=== PATIENT | female | born 1970 | race Hispanic/Latino ===

== ENCOUNTER 2017-01-24 09:52 | Outpatient (CLI) | payer BC ==
--- NOTE | 2017-01-24 11:17 | Mammography Report ---
BILATERAL MAMMOGRAM: FINDINGS: The breast tissue is heterogeneously dense, which could obscure detection of small masses (approximately 50%-75% glandular). No mass, distortion, suspicious calcification, or skin change is seen. No interval change compared to exams dating back to 2014. CAD was utilized. IMPRESSION: Negative mammogram. There is no mammographic evidence of malignancy. RECOMMENDATION: Follow-up per ACS guidelines. BI-RADS CATEGORY: 1 = Negative ACR BI-RADS MAMMOGRAPHIC CODES: 0 = Needs additional imaging evaluation; 1 = Negative; 2 = Benign; 3 = Probably benign; 4 = Suspicious; 5 = Malignant; 6 = Known biopsy-proven malignancy COMMENT: 1. Dense breast tissue, i.e., adenosis, fibrocystic changes, etc., may obscure an underlying neoplasm. 2. Approximately 10% of cancers are not detected with mammography. 3. A negative mammography report should not delay biopsy if a clinically suspicious mass is present. COMMENT: Patient follow-up letters are generated in [employer].
== END 2017-01-24 09:53 | disposition home or self-care (01) ==
LOC: SPVWC 09:52
PROVIDERS: ATTEND Obstetrics & Gynecology
DX: Z12.31 Encounter for screening mammogram for malignant neoplasm of breast (principal)
CPT/HCPCS: 77067; G0202

== ENCOUNTER 2017-03-24 06:02 | Day surgery (SDC) | payer BC ==
[2017-03-24] MEDS ORDERED: WATER FOR IRRIG STERILE IR ONE (07:25)
--- NOTE | 2017-03-24 07:31 | Discharge Summary ---
Providers - Providers Date of discharge: 03/24/17 Attending physician: EDUARDO TINEO Primary care physician: SOFIE TAYLOR Hospitalization Condition: Good Procedures: egd Disposition: - TO HOME OR SELFCARE Core Measure Documentation - Palliative Care Palliative Care/ Comfort Measures: Not Applicable - Core Measures Any of the following diagnoses?: none Exam - Physical Exam Narrative exam: unchanged from pre-op Plan Activity: no restrictions Diet: regular Follow up with: SOFIE TAYLOR MD, PHD [Primary Care Provider] - 7 Days
--- NOTE | 2017-03-24 07:35 | Operative Report ---
Operative Report Operative Report: OPERATIVE REPORT - EGD DATE 03/24/17 SURGERY: Upper endoscopy. SURGEON: Vaishali Ramos M.D. DIRECTOR UTILIZATION MANAGEMENT: n/a PRE OP DX:dyspepsia POST OP DX: hiatal hernia TYPE OF ANESTHESIA: MAC. ESTIMATED BLOOD LOSS: None. COMPLICATIONS: None. SPECIMENS REMOVED: None. FINDINGS: 1. Small hiatal hernia. 2. Otherwise, normal esophagus, stomach and first portion of duodenum. INDICATIONS:INDICATION FOR PROCEDURE: Patient is a 46-year-old female with a long history of morbid obesity. She is planned to have a weight loss procedure and is here for preoperative planning EGD. PROCEDURE DETAILS: After consent was reviewed, patient was taken back to the operating room where patient was placed in the left lateral decubitus position and a bite block was placed in the mouth. After a time-out was called, MAC anesthesia was initiated. I then passed the endoscope into her oropharynx, into her esophagus, visualized the entire esophagus, which was all within normal limits. I then visualized the stomach and the first portion of the duodenum and there were no abnormalities I could clearly visualize. I then retroflexed the scope in the stomach and visualized the hiatus and I could see a small hiatal hernia. I then desufflated the stomach and removed the endoscope. Patient tolerated procedure well and was transferred to recovery room in good and stable condition.
[2017-03-24] MEDS ORDERED: XYLOCAINE 1% 20 mL ONE (07:37)
[2017-03-24] MEDS ORDERED: DIPRIVAN 10 MG/ML IV ONE ×2 (07:38)
[2017-03-24] MEDS: NACL 0.9% 1000 ML 1,000 ML IV SCH ×2 (07:43→08:09)
--- NOTE | 2017-03-24 08:03 | Anesthesia Consultation ---
Anesthesia Consult and Med Hx Date of service: 03/24/17 - Airway Anesthetic Teeth Evaluation: Good ROM Head & Neck: Adequate Mental/Hyoid Distance: Adequate Mallampati Class: Class III Intubation Access Assessment: Possibly Difficult - Pulmonary Exam CTA: Yes - Cardiac Exam Cardiac Exam: RRR - Pre-Operative Health Status ASA Pre-Surgery Classification: ASA3 Proposed Anesthetic Plan: MAC - Pre-Anesthesia Comment Pre-Anesthesia Comments: PONV - Pulmonary Hx Smoking: Yes (Quit 2013) - Cardiovascular System Hx Hypertension: Yes (10 + YRS) Hx Cardia Arrhythmia: Yes (SVT, Non sustained VTach) Hx Internal Defibrillator: Yes (PLACED 08/2014 , REMOVED 11/2015 " KEPT FIRING") - Other Systems Hx Obesity: Yes (BMI 41) - Additional Comments Anesthesia Medical History Comments: sciatica
--- NOTE | 2017-03-24 08:05 | Anesthesia Day of Surgery ---
Anesthesia Day of Surgery - Day of Surgery Patient Examined: Yes Patient H&P Reviewed: Yes Patient is NPO: Yes Beta Blockers: Yes
[2017-03-24 08:12] VITALS: BP 123/68
--- NOTE | 2017-03-24 08:25 | Post Anesthesia Evaluation ---
- Post Anesthesia Evaluation Patient Participated: Yes Airway Patent: Yes Stable Respiratory Function: Yes Temp > 96.8F: Yes Pain Manageable: Yes Adequeate Hydration: Yes Anesthesia Complications: No Block Receding Appropriately: Not Applicable
== END 2017-03-24 06:03 | disposition home or self-care (01) ==
LOC: GIO 06:02
PROVIDERS: ATTEND Surgery
DX: K44.9 Diaphragmatic hernia without obstruction or gangrene (principal); I10 Essential (primary) hypertension; E78.00 Pure hypercholesterolemia, unspecified; E66.01 Morbid (severe) obesity due to excess calories; Z68.41 Body mass index [BMI] 40.0-44.9, adult; Z87.891 Personal history of nicotine dependence; Z86.79 Personal history of other diseases of the circulatory system; Z90.710 Acquired absence of both cervix and uterus; Z98.890 Other specified postprocedural states; Z88.1 Allergy status to other antibiotic agents; Z79.899 Other long term (current) drug therapy; Z82.49 Family history of ischemic heart disease and other diseases of the circulatory system; Z83.3 Family history of diabetes mellitus
CPT/HCPCS: 43235; J2704; J7030

== ENCOUNTER 2017-07-03 12:29 | Outpatient (CLI) | payer BC ==
--- NOTE | 2017-07-08 07:37 | Vascular Lab Report ---
CAROTID DUPLEX STUDY: RIGHT PSVEDV CCA PROX:7925 CCA DIST:6927 ICA PROX:6226 ICA MID:9141 ICA DIST:8132 ECA: 94 VERT: 55 23 LEFT PSVEDV CCA PROX:[id number] CCA DIST:05305 ICA PROX:7422 ICA MID:8837 ICA DIST:9545 ECA: 86 VERT: 47 17 REASON FOR EXAM: Carotid artery stenosis/syncope. COMMENTS ON THE RIGHT: Doppler frequency analysis is consistent with 16 to 49 percent diameter reduction of the internal carotid artery. Minimal amount of plaque is seen. The common carotid artery is patent. The external carotid artery is patent. The vertebral artery has antegrade flow. COMMENTS ON THE LEFT: Doppler frequency analysis is consistent with 16 to 49 percent diameter reduction of the internal carotid artery. Minimal amount of plaque is seen. The common carotid artery is patent. The external carotid artery is patent. The vertebral artery has antegrade flow. IMPRESSION: Less than 50% diameter reduction in the internal carotid arteries bilaterally. Consider repeat carotid artery duplex in 12 months.
== END 2017-07-03 12:30 | disposition home or self-care (01) ==
LOC: SPVIMAG 12:29
DX: I65.23 Occlusion and stenosis of bilateral carotid arteries (principal); R55 Syncope and collapse; R42 Dizziness and giddiness
CPT/HCPCS: 93880

== ENCOUNTER 2017-09-30 10:19 | Outpatient (CLI) | payer BC ==
--- NOTE | 2017-09-30 11:36 | XRay Report ---
Right foot 3 views. History: Pain after trauma. Findings: There is no evidence of acute fracture or other acute findings. 2 orthopedic pins are seen in the distal aspect of the first metatarsal. Bony mineralization is normal. Small spurs are seen arising from the posterior and dorsal aspect of the os calcis. Impression: No acute findings.
== END 2017-09-30 10:20 | disposition home or self-care (01) ==
LOC: SPVIMAG 10:19
DX: M25.871 Other specified joint disorders, right ankle and foot (principal)

== ENCOUNTER 2017-10-26 13:45 | Inpatient (IN) | payer BC ==
[2017-10-26 15:17] LABS: Basophils % (Auto) 0.5 % (0.0-1.8); Eosinophils % (Auto) 0.7 % (0.0-4.3); Hematocrit 38.7 % (30.3-42.9); Hemoglobin 13.1 gm/dl (10.1-14.3); Lymphocytes # (Auto) 0.6 K/mm3 (1.2-5.4); Lymphocytes % (Auto) 10.2 % (13.4-35.0); Mean Corpuscular HGB Conc 34 % (30-34); Mean Corpuscular Hemoglobin 29 pg (28-32); Mean Corpuscular Volume 84 fl (79-97); Monocytes # (Auto) 0.3 K/mm3 (0.0-0.8); Monocytes % (Auto) 5.7 % (0.0-7.3); Platelet Count 171 K/mm3 (140-440); Red Blood Count 4.59 M/mm3 (3.65-5.03); Red Cell Distribution Width 13.2 % (13.2-15.2)
[2017-10-26 15:46] LABS: Alanine Aminotransferase 14 units/L (7-56); Albumin 4.1 g/dL (3.9-5); BUN/Creatinine Ratio 17; Blood Urea Nitrogen 12 mg/dL (7-17); Calcium 8.9 mg/dL (8.4-10.2); Hemolysis Index 0
[2017-10-27] MEDS ORDERED: NORCO 5/325 PO ONE (02:06)
--- NOTE | 2017-10-27 02:12 | Emergency Department Report ---
HPI - General Chief Complaint: Arrhythmia/Palpitations Time Seen by Provider: 10/27/17 01:56 - HPI HPI: Room 7 The patient is a 47-year-old female presented with a chief complaint of "taking sick." The patient says she has several family members were diagnosed with the flu. Patient states yesterday evening she began developing body aches, nonproductive cough, chills and fever 100.4F. Patient also admits to rhinorrhea but denies nausea/vomiting. Patient states her biggest complaint currently are body aches and feeling tired Location: [See above] Duration: Constant since yesterday Quality: Aches Severity: Moderate Modifying factors: [see above] Context: [see above] Mode of transportation: [not driving] ED Past Medical Hx - Past Medical History Hx Hypertension: Yes Hx GERD: Yes Hx Arthritis: Yes Hx Headaches / Migraines: Yes Hx Kidney Stones: Yes Additional medical history: CAD (3 BLOCKAGES, NO STENTS). SVT - Surgical History Hx Pacemaker: Yes (Defribrillator removed) Hx Internal Defibrillator: (had defibrillator removed) Hx Cholecystectomy: Yes Additional Surgical History: hysterectomy 2013 - Family History Family history: no significant - Social History Smoking Status: Never Smoker Substance Use Type: None (denies illicit drug use) - Medications Home Medications: Home Medications Medication Instructions Recorded Confirmed Last Taken Type Aspirin [Aspirin TAB] 325 mg PO QDAY 06/14/16 10/09/17 10/09/17 History AtorvaSTATin [Lipitor] 80 mg PO QHS 06/14/16 10/09/17 03/23/17 History ALPRAZolam [Xanax TAB] 0.25 mg PO TID PRN 03/21/17 10/09/17 03/25/17 History Metoprolol [Lopressor TAB] 25 mg PO QHS 10/09/17 10/09/17 10/08/17 21:00 History 25 Metoprolol [Lopressor TAB] 50 mg PO QAM 10/09/17 10/09/17 10/09/17 History ED Review of Systems ROS: Stated complaint: IRREGULAR HEARTBEAT Other details as noted in HPI Constitutional: chills, fever ENT: other (rhinorrhea) Respiratory: cough Gastrointestinal: denies: nausea, vomiting Musculoskeletal: myalgia Physical Exam - Physical Exam Vital Signs: Vital Signs 10/26/17 10/26/1718 14:13 22:01 01:29 Temperature 99.4 F 98 F 98.8 F Pulse Rate 122 H 78 90 Respiratory 18 18 18 Rate Blood Pressure 164/103 137/82 Blood Pressure 152/93 [Left] O2 Sat by Pulse 98 97 98 Oximetry Physical Exam: GENERAL: The patient is well-developed well-nourished female lying on stretcher not appearing to be in acute distress. [] HEENT: Normocephalic. Atraumatic. Extraocular motions are intact. Patient has moist mucous membranes. NECK: Supple. Trachea midline CHEST/LUNGS: Clear to auscultation. There is no respiratory distress noted. HEART/CARDIOVASCULAR: Regular. There is no tachycardia. There is no gallop rub or murmur. ABDOMEN: Abdomen is soft, nontender. Patient has normal bowel sounds. There is no abdominal distention. SKIN: There is no rash. There is no edema. There is no diaphoresis. NEURO: The patient is awake, alert, and oriented. The patient is cooperative. The patient has normal speech MUSCULOSKELETAL: There is no evidence of acute injury. ED Course Vital Signs 10/26/17 10/26/17 10/27/17 14:13 22:01 01:29 Temperature 99.4 F 98 F 98.8 F Pulse Rate 122 H 78 90 Respiratory 18 18 18 Rate Blood Pressure 164/103 137/82 Blood Pressure 152/93 [Left] O2 Sat by Pulse 98 97 98 Oximetry - Reevaluation(s) Reevaluation #1: 10/27/17 04:26 Patient started complaining of epigastric pain radiating to her chest after receiving [place]. Pain was unrelieved with GI cocktail. Repeat EKG and cardiac enzymes ordered Reevaluation #2: 10/27/17 05:00 Patient continues to have chest pain states she became diaphoretic with it. Repeat EKG does not show any acute changes. Patient states she had a cardiac catheterization approximately 3 years ago that showed a 50% occlusion in one of her vessels. Given the patient's medical history and new onset chest pain I will admit the patient to the hospital for further monitoring ED Medical Decision Making - Lab Data Result diagrams: 10/26/17 15:02 10/26/17 15:02 - EKG Data -: EKG Interpreted by Me EKG shows normal: sinus rhythm Rate: tachycardia (119 bpm) - EKG Data When compared to previous EKG there are: previous EKG unavailable Interpretation: unchanged when compared t (10/09/2017), other (single PVC) 10/27/17 05:02 EKG #2 reveals normal sinus rhythm at 81 bpm. No significant changes when compared to previous EKG - Radiology Data Radiology results: report reviewed (chest x-ray), image reviewed (chest x-ray) interpreted by me: Chest x-ray-no definite focal infiltrates, no pneumothorax FINAL REPORT PROCEDURE: XR CHEST ROUTINE 2V TECHNIQUE: PA and lateral chest radiographs were obtained. CPT 76388 HISTORY: cough, fever COMPARISON: 10/09/2017 FINDINGS: Heart: Normal. Mediastinum/Vessels: Normal. Lungs/Pleural space: Slight infiltrate left lower lung. Bony thorax: No acute osseous abnormality. Other: IMPRESSION: Slight infiltrate left lower lung. Transcribed By: [facility] Dictated By: JAVIER BARRIOS MD Electronically Authenticated By: JAVIER BARRIOS MD Signed Date/Time: 10/26/172252 DD/ 52 TD/TT: 10/26/172252 - Differential Diagnosis influenza, bronchitis, pneumonia, UTI, ACS Critical care attestation.: If time is entered above; I have spent that time in minutes in the direct care of this critically ill patient, excluding procedure time. ED Disposition Clinical Impression: Chest pain, Cough Disposition: -09 OP ADMIT IP TO THIS HOSP Is pt being admited?: Yes Does the pt Need Aspirin: Yes Condition: Fair Instructions: Chest Pain (ED) Referrals: PRIMARY CARE, [Primary Care Provider] - 3-5 Days Time of Disposition: 05:02 (hospitalist paged (Dr Kim))
--- NOTE | 2017-10-27 02:57 | XRay Report ---
FINAL REPORT PROCEDURE: XR CHEST ROUTINE 2V TECHNIQUE: PA and lateral chest radiographs were obtained. CPT 79121 HISTORY: cough, fever COMPARISON: 10/09/2017 FINDINGS: Heart: Normal. Mediastinum/Vessels: Normal. Lungs/Pleural space: Slight infiltrate left lower lung. Bony thorax: No acute osseous abnormality. Other: IMPRESSION: Slight infiltrate left lower lung.
[2017-10-27] MEDS ORDERED: ALUM-MAG HYDROX-SIMETH 200-200-20MG/5ML PO ONE (03:33)
[2017-10-27] MEDS ORDERED: LIDOCAINE VISCOUS 2% PO ONE (03:33)
[2017-10-27] MEDS ORDERED: ZOFRAN IV ONE (04:26)
[2017-10-27] MEDS ORDERED: MORPHINE IV ONE (04:26)
[2017-10-27] MEDS ORDERED: NITRO-BID 2% TP ONE (05:00)
[2017-10-27] MEDS ORDERED: ASPIRIN PO ONE (05:03)
[2017-10-27 05:40] LABS: Creatine Kinase MB 1.1 ng/mL (0.0-4.0)
[2017-10-27] MEDS ORDERED: LEVAQUIN PO ONE (05:43)
[2017-10-27] MEDS ORDERED: AMBIEN PO PRN (05:47)
[2017-10-27] MEDS ORDERED: NITROSTAT SL PRN (05:47)
[2017-10-27] MEDS ORDERED: ZOFRAN IV PRN (05:47)
[2017-10-27] MEDS ORDERED: MILK OF MAGNESIA PO PRN (05:47)
[2017-10-27] MEDS ORDERED: PROVENTIL IH PRN (05:47)
[2017-10-27] MEDS ORDERED: SODIUM CHLORIDE FLUSH SYRINGE 10 ML IV PRN (05:47)
[2017-10-27] MEDS ORDERED: DULCOLAX PR PRN (05:47)
[2017-10-27] MEDS ORDERED: TYLENOL PO PRN (05:47)
[2017-10-27] MEDS ORDERED: APRESOLINE IV PRN (05:47)
[2017-10-27] MEDS ORDERED: NACL 0.45% 1000 ML 1,000 ML IV SCH (06:00)
--- NOTE | 2017-10-27 06:04 | History and Physical Report ---
History of Present Illness Date of examination: 10/27/17 Chief complaint: flu like sx & chest pain History of present illness: The patient is a 47-year-old female presented with a chief complaint of "taking sick." The patient says she has several family members were diagnosed with the flu. Patient states yesterday evening she began developing body aches, nonproductive cough, chills and fever 100.4F. Patient also admits to rhinorrhea but denies nausea/vomiting. Patient states her biggest complaint currently are body aches and feeling tired - Past Medical History Hx Hypertension: Yes Hx GERD: Yes Hx Arthritis: Yes Hx Headaches / Migraines: Yes Hx Kidney Stones: Yes Additional medical history: CAD (3 BLOCKAGES, NO STENTS). SVT - Surgical History Hx Pacemaker: Yes (Defribrillator removed) Hx Internal Defibrillator: (had defibrillator removed) Hx Cholecystectomy: Yes Additional Surgical History: hysterectomy 2013 - Family History Family history: no significant - Social History Smoking Status: Never Smoker Substance Use Type: None (denies illicit drug use) Medications and Allergies Allergies Allergy/AdvReac Type Severity Reaction Status Date / Time doxycycline AdvReac ulcers Verified 03/25/17 17:22 esophagus tetracycline [Tetracycline] AdvReac ulcers Verified 03/25/17 17:22 esophagus Home Medications Medication Instructions Recorded Confirmed Last Taken Type Aspirin [Aspirin TAB] 325 mg PO QDAY 06/14/16 10/09/17 10/09/17 History AtorvaSTATin [Lipitor] 80 mg PO QHS 06/14/16 10/09/17 03/23/17 History ALPRAZolam [Xanax TAB] 0.25 mg PO TID PRN 03/21/17 10/09/17 03/25/17 History Metoprolol [Lopressor TAB] 25 mg PO QHS 10/09/17 10/09/17 10/08/17 21:00 History 25 Metoprolol [Lopressor TAB] 50 mg PO QAM 10/09/17 10/09/17 10/09/17 History Active Meds: Active Medications Oseltamivir Phosphate (Tamiflu) 75 mg PO BID ADRIANNA Stop: 10/31/17 22:01 Review of Systems All systems: negative (as in HPI) Exam - Physical Exam Narrative exam: General: the patient is awake alert oriented to time place and person. no evidence of acute distress HEENT: Head is atraumatic normocephalic,. Pupils equal round reactive to light and accommodation, extraocular movements intact. Oral mucosa moist. Oropharynx clear. No pharyngeal erythema or tonsillar exudate. Neck: Supple no JVD no thyromegaly or lymphadenopathy. Heart: Regular rate and rhythm no murmurs or gallops. S1 and S2 normal. PMI not displaced. Lungs: Clear to auscultation bilaterally. No rales rhonchi wheezing. Nonlabored breathing. Normal chest wall expansion. Abdomen: Soft, nondistended, and nontender. Normoactive bowel sounds. No hepatosplenomegaly. No abdominal masses or bruit appreciated. Extremities: No cyanosis/clubbing/ edema. Musculoskeletal: Normal range of movement all joints. No obvious deformity or tenderness to palpation. Normal muscle tone. Back: Normal alignment. No step-off. No midline or paraspinal tenderness. No CVA tenderness. Neurological: Grossly intact and nonfocal. No cerebellar signs. Cranial nerves II-12 grossly intact. Strength 5 out of 5 all 4 extremities. Sensations grossly intact. Skin: Warm and dry no rashes or bruises. Psychiatric: Normal mood. Appropriate affect and good insight and judgment. Vascular system: No lymphadenopathy. Distal pulses 2+ bilaterally. - Constitutional Vitals: Temp Pulse Resp BP Pulse Ox 98.8 F 102 H 21 168/89 95 10/27/17 01:29 10/27/17 05:44 10/27/17 04:15 10/27/17 05:44 10/27/17 04:15 Results - Labs CBC & Chem 7: 10/26/17 15:02 10/26/17 15:02 Labs: Laboratory Last Values WBC 6.0 K/mm3 (4.5-11.0) 10/26/17 15:02 RBC 4.59 M/mm3 (3.65-5.03) 10/26/17 15:02 Hgb 13.1 gm/dl (10.1-14.3) 10/26/17 15:02 Hct 38.7 % (30.3-42.9) 10/26/17 15:02 MCV 84 fl (79-97) 10/26/17 15:02 MCH 29 pg (28-32) 10/26/17 15:02 MCHC 34 % (30-34) 10/26/17 15:02 RDW 13.2 % (13.2-15.2) 10/26/17 15:02 Plt Count 171 K/mm3 (140-440) 10/26/17 15:02 Lymph % (Auto) 10.2 % (13.4-35.0) L 10/26/17 15:02 [place] % (Auto) 5.7 % (0.0-7.3) 10/26/17 15:02 Eos % (Auto) 0.7 % (0.0-4.3) 10/26/17 15:02 Baso % (Auto) 0.5 % (0.0-1.8) 10/26/17 15:02 Lymph # 0.6 K/mm3 (1.2-5.4) L 10/26/17 15:02 [place] # 0.3 K/mm3 (0.0-0.8) 10/26/17 15:02 Eos # 0.0 K/mm3 (0.0-0.4) 10/26/17 15:02 Baso # 0.0 K/mm3 (0.0-0.1) 10/26/17 15:02 Seg Neutrophils % 82.9 % (40.0-70.0) H 10/26/17 15:02 Seg Neutrophils # 5.0 K/mm3 (1.8-7.7) 10/26/17 15:02 Sodium 141 mmol/L (137-145) 10/26/17 15:02 Potassium 3.7 mmol/L (3.6-5.0) 10/26/17 15:02 Chloride 102.2 mmol/L (98-107) 10/26/17 15:02 Carbon Dioxide 26 mmol/L (22-30) 10/26/17 15:02 Anion Gap 17 mmol/L 10/26/17 15:02 BUN 12 mg/dL (7-17) 10/26/17 15:02 Creatinine 0.7 mg/dL (0.7-1.2) 10/26/17 15:02 Estimated GFR > 60 ml/min 10/26/17 15:02 BUN/Creatinine Ratio 17 % 10/26/17 15:02 Glucose 119 mg/dL (65-100) H 10/26/17 15:02 Calcium 8.9 mg/dL (8.4-10.2) 10/26/17 15:02 Total Bilirubin 0.40 mg/dL (0.1-1.2) 10/26/17 15:02 AST 15 units/L (5-40) 10/26/17 15:02 ALT 14 units/L (7-56) 10/26/17 15:02 Alkaline Phosphatase 67 units/L (35-129) 10/26/17 15:02 Total Creatine Kinase 55 units/L (30-135) 10/27/17 05:03 CK-MB (CK-2) 1.1 ng/mL (0.0-4.0) 10/27/17 05:03 CK-MB (CK-2) Rel Index 2.0 (0-4) 10/27/17 05:03 Troponin T < 0.010 ng/mL (0.00-0.029) 10/27/17 05:03 Total Protein 6.2 g/dL (6.3-8.2) L 10/26/17 15:02 Albumin 4.1 g/dL (3.9-5) 10/26/17 15:02 Albumin/Globulin Ratio 2.0 % 10/26/17 15:02 - Imaging and Cardiology Imaging and Cardiology: Chest x-ray showing left lower lobe infiltrate Assessment and Plan Assessment and plan: Assessment and plan - * Chest pain rule out acute coronary syndrome * Left lower lobe pneumonia * Influenza * Malignant hypertension * Coronary artery disease Plan - Admitted to medical floor with telemetry Cardiology consult for further eval lesion and management patient had cardiac catheterization done 3 years ago which showed 50% blockages. She had a negative stress test on 10/11/2017 Defer further evaluation and management to cardiology Patient started on Tamiflu Influenza screening test Start Levaquin for the pneumonia Continue home meds When necessary hydralazine for optimal blood pressure control. Start The patient on hydrochlorothiazide and lisinopril Monitor CBC and electrolytes Replace electrolytes when necessary DVT GI prophylaxis as ordered Monitor and follow the patient closely
[2017-10-27 06:19] LABS: Alanine Aminotransferase 52 units/L (7-56); Albumin 3.4 g/dL (3.9-5); BUN/Creatinine Ratio 17; Blood Urea Nitrogen 10 mg/dL (7-17); Calcium 8.5 mg/dL (8.4-10.2); Hemolysis Index 6
[2017-10-27] MEDS ORDERED: MORPHINE IV PRN (06:22)
[2017-10-27] MEDS: XANAX PO PRN (06:30)
[2017-10-27 06:31] LABS: Basophils % (Auto) 0.6 % (0.0-1.8); Eosinophils % (Auto) 0.6 % (0.0-4.3); Hemoglobin 12.4 gm/dl (10.1-14.3); Lymphocytes # (Auto) 0.6 K/mm3 (1.2-5.4); Lymphocytes % (Auto) 9.8 % (13.4-35.0); Mean Corpuscular HGB Conc 35 % (30-34); Mean Corpuscular Hemoglobin 29 pg (28-32); Mean Corpuscular Volume 82 fl (79-97); Monocytes # (Auto) 0.4 K/mm3 (0.0-0.8); Monocytes % (Auto) 7.4 % (0.0-7.3); Platelet Count 158 K/mm3 (140-440); Red Blood Count 4.28 M/mm3 (3.65-5.03)
[2017-10-27 06:34] LABS: Chol/HDL Ratio 3.18 %; HDL Cholesterol 49 mg/dL (40-59); LDL Cholesterol,Direct 95 mg/dL (50-130)
[2017-10-27 07:58] LABS: Bacteria,Urine 2+ /HPF (Negative); Bilirubin,Urine NEG (Negative); Blood,Urine MOD (Negative); Color,Urine Yellow (Yellow); Mucus,Urine 3+ /HPF; Nitrite,Urine NEG (Negative)
[2017-10-27] MEDS: HCTZ PO SCH (09:59)
[2017-10-27] MEDS: LOVENOX SUB-Q SCH (10:00)
[2017-10-27] MEDS: PEPCID PO SCH ×2 (10:00→21:23)
[2017-10-27] MEDS: LOPRESSOR PO SCH ×2 (10:00→21:23)
[2017-10-27] MEDS: TAMIFLU PO SCH (10:00)
[2017-10-27] MEDS: ZESTRIL PO SCH (10:01)
[2017-10-27] MEDS: LEVAQUIN 750MG/150ML 750 MG/150 ML BAG IV SCH (10:01)
[2017-10-27 12:56] LABS: Creatine Kinase MB 1.2 ng/mL (0.0-4.0)
--- NOTE | 2017-10-27 14:25 | Consultation ---
History of Present Illness Consult date: 10/27/17 Requesting physician: AKIRA PRIETO Consult reason: chest pain History of present illness: The pt is a 47 YO female with a past medical history significant for paroxysmal VT, nonobstructive CAD, HTN, GERD, OA, migraines, adrenal land thickening with pheocyromocytoma ruled out per pt report. The patient is followed by Dr. Eduardo Alonso at [place]. She works for [employer] at [employer]. She has a family history of a sudden and a personal history of paroxysmal ventricular tachycardia. She received an ICD implantation in 2013. She claims that she subsequently received multiple inappropriate shocks recurrently which led to depression, anxiety, and posttraumatic stress. Eventually, she requested explantation of the device which was performed in November 2015. On 11/13/2015, she underwent coronary angiography which revealed 50 % mid RCA stenosis, 50% mid PDA, and a 50% proximal circumflex lesion. PET/CT myocardial perfusion scan at that time revealed mild anterior wall ischemia. She was continued on medical management. She presented with c/o chest pain, body aches, nonproductive cough, fever and chills. Pt reports that her is currently hospitalized for treatment of bronchitis here at [facility] and she was visiting her yesterday when she decided to walk down to the ED for evaluation of her symptoms. CXR shows LLL PNA. ECG with no acute ischemic changes. Troponins negative for AMI x 3 sets. Of note, pt recently was discharged from [facility] on 08/11/2018 following treatment/ eval for chest pain, palpitations and transient neurological symptoms. She underwent stress test on 10/11/2017 which showed no evidence of ischemia or prior infarct, normal lv fxn, brief episode of SVT post-stress (self limited and resolved with vagal maneuvers). Echo done 10/10/2017 showed EF 50-55%, no significant valvular disease. Past History Past Medical History: CAD, GERD, hypertension, migraines, other (as noted in HPI ) Past Surgical History: Other (AICD implantation and explantation as noted in HPI ) Social history: denies: smoking, alcohol abuse, prescription drug abuse Medications and Allergies Allergies Allergy/AdvReac Type Severity Reaction Status Date / Time doxycycline AdvReac ulcers Verified 03/25/17 17:22 esophagus tetracycline [Tetracycline] AdvReac ulcers Verified 07/18/17 17:22 esophagus Home Medications Medication Instructions Recorded Confirmed Last Taken Type Aspirin [Aspirin TAB] 325 mg PO QDAY 06/14/16 10/27/17 2 Days Ago History ~10/25/17 AtorvaSTATin [Lipitor] 80 mg PO QHS 06/14/16 10/27/17 2 Days Ago History ~10/25/17 Metoprolol [Lopressor TAB] 25 mg PO QHS 10/09/17 10/27/17 2 Days Ago History ~10/25/17 Metoprolol [Lopressor TAB] 50 mg PO QAM 10/09/17 10/27/17 2 Days Ago History ~10/25/17 Active Meds: Active Medications Acetaminophen (Tylenol) 650 mg PO Q4H PRN PRN Reason: Pain MILD(1-3)/Fever >100.5/FONTANEZ Albuterol (Proventil) 2.5 mg IH Q4HRT PRN PRN Reason: Shortness Of Breath Alprazolam (Xanax) 0.25 mg PO TID PRN PRN Reason: Anxiety Last Admin: 10/27/17 06:30 Dose: 0.25 mg Aspirin (Ecotrin) 325 mg PO QDAY [facility] Atorvastatin Calcium (Lipitor) 80 mg PO QHS [facility] Bisacodyl (Dulcolax) 10 mg AL QDAY PRN PRN Reason: Constipation unrelieved by MOM Enoxaparin Sodium (Lovenox) 40 mg SUB-Q QDAY [facility] Last Admin: 10/27/17 10:00 Dose: 40 mg Famotidine (Pepcid) 20 mg PO BID [facility] Last Admin: 10/27/17 10:00 Dose: 20 mg Hydralazine HCl (Apresoline) 10 mg IV Q6HR PRN PRN Reason: FOR SBP > target Hydrochlorothiazide (Hctz) 25 mg PO QDAY [facility] Last Admin: 10/27/17 09:59 Dose: 25 mg Sodium Chloride (Nacl 0.45% 1000 Ml) 1,000 mls @ 100 mls/hr IV DIRECT ADRIANNA Levofloxacin/Dextrose (Levaquin 750mg/150ml) 750 mg in 150 mls @ 100 mls/hr IV Q24HR [facility] PRN Reason: Protocol Last Admin: 10/27/17 10:01 Dose: 100 mls/hr Lisinopril (Zestril) 10 mg PO QDAY [facility] Last Admin: 10/27/17 10:01 Dose: 10 mg Magnesium Hydroxide (Milk Of Magnesia) 30 ml PO Q4H PRN PRN Reason: Constipation Metoprolol Tartrate (Lopressor) 50 mg PO BID [facility] Last Admin: 10/27/17 10:00 Dose: 50 mg Morphine Sulfate (Morphine) 2 mg IV Q4H PRN PRN Reason: Pain, Moderate (4-6) Nitroglycerin (Nitrostat) 0.4 mg SL Q5M PRN PRN Reason: Chest Pain Ondansetron HCl (Zofran) 4 mg IV Q8H PRN PRN Reason: N/V unrelieved by Reglan Last Admin: 10/27/17 10:02 Dose: 4 mg Oseltamivir Phosphate (Tamiflu) 75 mg PO BID [facility] Stop: 10/31/17 22:01 Last Admin: 10/27/17 10:00 Dose: 75 mg Oxycodone/Acetaminophen (Percocet 5/325) 1 tab PO Q6H PRN PRN Reason: Pain, Moderate (4-6) Sodium Chloride (Sodium Chloride Flush Syringe 10 Ml) 10 ml IV PRN PRN PRN Reason: LINE FLUSH Zolpidem Tartrate (Ambien) 5 mg PO QHS PRN PRN Reason: Insomnia Review of Systems Constitutional: fever, chills, no weight loss, no weight gain Ears, nose, mouth and throat: no ear pain, no nose pain, no sinus pressure, no sinus pain Cardiovascular: chest pain, shortness of breath, dyspnea on exertion, no orthopnea, no edema, no syncope, no lightheadedness, no leg edema Respiratory: cough, shortness of breath, dyspnea on exertion, no congestion, no wheezing, no pain on inspiration Gastrointestinal: no abdominal pain, no nausea, no vomiting, no diarrhea, no constipation, no change in bowel habits Genitourinary Female: no pelvic pain, no flank pain, no dysuria, no urinary frequency, no urgency Musculoskeletal: no neck stiffness, no neck pain Integumentary: no rash, no pruritis, no redness, no sores, no wounds Neurological: no head injury, no paralysis, no weakness, no parathesias, no numbness, no tingling, no seizures, no syncope Psychiatric: no anxiety Endocrine: no cold intolerance, no heat intolerance Hematologic/Lymphatic: no easy bruising, no easy bleeding, no lymphadenopathy Allergic/Immunologic: no urticaria, no wheezing, no persistent infections Physical Examination Vital Signs Temp Pulse Resp BP Pulse Ox 99.4 F 122 H 18 164/103 98 10/26/17 14:13 10/26/17 14:13 10/26/17 14:13 10/26/17 14:13 10/26/17 14:13 General appearance: no acute distress HEENT: Positive: PERRL, Normocephaly, Mucus Membranes Moist Neck: Positive: neck supple, trachea midline Cardiac: Positive: Reg Rate and Rhythm, S1/S2 Lungs: Positive: Decreased Breath Sounds Neuro: Positive: Grossly Intact Abdomen: Positive: Soft. Negative: Tender Skin: Positive: Clear. Negative: Rash, Wound Musculoskeletal: No Fluid Collection, No Pain, Normal Range of Motion Extremities: Absent: edema Results 10/27/17 06:05 10/27/17 05:03 Cardiac Enzymes 10/26/17 10/27/17 10/27/17 Range/Units 15:02 05:03 05:03 AST 15 68 H (5-40) units/L CK-MB (CK-2) 1.1 (0.0-4.0) ng/mL 10/27/17 Range/Units 12:15 AST (5-40) units/L CK-MB (CK-2) 1.2 (0.0-4.0) ng/mL Lipids 10/27/17 Range/Units 05:03 Triglycerides 63 (2-149) mg/dL Cholesterol 156 (50-199) mg/dL HDL Cholesterol 49 (40-59) mg/dL Cholesterol/HDL Ratio 3.18 % CBC 10/26/17 10/27/17 Range/Units 15:02 06:05 WBC 6.0 5.6 (4.5-11.0) K/mm3 RBC 4.59 4.28 (3.65-5.03) M/mm3 Hgb 13.1 12.4 (10.1-14.3) gm/dl Hct 38.7 35.0 (30.3-42.9) % Plt Count 171 158 (140-440) K/mm3 Lymph # 0.6 L 0.6 L (1.2-5.4) K/mm3 [place] # 0.3 0.4 (0.0-0.8) K/mm3 Eos # 0.0 0.0 (0.0-0.4) K/mm3 Baso # 0.0 0.0 (0.0-0.1) K/mm3 Comprehensive Metabolic Panel 10/26/17 10/27/17 Range/Units 15:02 05:03 Sodium 141 140 (137-145) mmol/L Potassium 3.7 3.3 L (3.6-5.0) mmol/L Chloride 102.2 100.4 (98-107) mmol/L Carbon Dioxide 26 23 (22-30) mmol/L BUN 12 10 (7-17) mg/dL Creatinine 0.7 0.6 L (0.7-1.2) mg/dL Glucose 119 H 156 H (65-100) mg/dL Calcium 8.9 8.5 (8.4-10.2) mg/dL AST 15 68 H (5-40) units/L ALT 14 52 (7-56) units/L Alkaline Phosphatase 67 77 (35-129) units/L Total Protein 6.2 L 6.1 L (6.3-8.2) g/dL Albumin 4.1 3.4 L (3.9-5) g/dL - Imaging and Cardiology Echo: report reviewed (10/10/2017 showed EF 50-55%, no significant valvular disease) Cardiac cath: report reviewed (11/13/2015, she underwent coronary angiography which revealed 50% mid RCA stenosis, 50% mid PDA, and a 50% proximal circumflex lesion) EKG: report reviewed, image reviewed EKG interpretations - Telemetry EKG Rhythm: Sinus Rhythm - EKG Sinus rhythms and dysrhythmias: sinus tachycardia Assessment and Plan Assessment: Chest pain, atypical - recurrent; ECG with NAF; troponin negative for AMI x 3 sets PNA H/o paroxysmal VT - ICD implantation 2013 with explantation 11/2015 per pt's request Nonobstructive CAD HTN GERD H/o adrenal land thickening with pheocyromocytoma ruled out per pt report Morbid obesity H/o depression, anxiety, and posttraumatic stress r/t inappropriate AICD shocks per pt report Plan: Lexiscan MPI stress test done 10/11/2017 showed no evidence of ischemia or prior infarct, normal lv fxn, brief episode of SVT post-stress (self limited and resolved with vagal maneuvers). Treatment of PNA per primary. Optimize anti-ischemic regimen - initiate Imdur. If chest pain persists despite medical therapy, consider coronary angiography for definitive diagnosis. Assessment and plan reviewed with pt at bedside. The patient has been seen in conjunction with Dr. Arguelles who agrees with the assessment and plan of care.
--- NOTE | 2017-10-27 14:33 | Progress Note ---
Assessment and Plan Assessment and plan: Patient is a 47-year-old woman with a complex cardiac history who presented with weakness, flu like symptoms and chest pains -Chest pain -SVT -Coronary artery disease -URI consult to cardiology History Interval history: Patient was seen and examined. Follow-up on current diagnosis of chest pain which is improved. Overnight uneventful. Patient denies shortness breath, nausea/vomiting or severe headaches. Imaging, nursing note, chart, labs and old chart reviewed. Discussed with patient. Hospitalist Physical - Physical exam Narrative exam: GEN: WDWN, NAD, AWAKE, ALERT, ORIENTATED 3 HEENT: NCAT, EOMI, PERRL, OP Clear NECK: supple, no adenopathy, no thyromegaly, no JVD CVS/HEART: RRR, NORMAL S1S2, pulses present bilaterally CHEST/LUNGS: CTA B, Symmetrical chest expansion, good air entry bilaterally GI/Abdomen: soft, NTND, good bowel sounds, no guarding or rebound /Bladder: no suprapubic tenderness, no CVA or paraspinal tenderness EXT/Skin: no c/c/e, no obvious rash MSK: FROM x 4 Neuro: CN 2-12 grossly intact, no new focal deficits Psych: calm - Constitutional Vitals: Temp Pulse Resp BP Pulse Ox 98.6 F 59 L 18 145/88 99 10/27/17 12:11 10/27/17 13:32 10/27/17 12:11 10/27/17 12:11 10/27/17 12:11 Results - Labs CBC & Chem 7: 10/27/17 06:05 10/27/17 05:03 Labs: Laboratory Last Values WBC 5.6 K/mm3 (4.5-11.0) 10/27/17 06:05 RBC 4.28 M/mm3 (3.65-5.03) 10/27/17 06:05 Hgb 12.4 gm/dl (10.1-14.3) 10/27/17 06:05 Hct 35.0 % (30.3-42.9) 10/27/17 06:05 MCV 82 fl (79-97) 10/27/17 06:05 MCH 29 pg (28-32) 10/27/17 06:05 MCHC 35 % (30-34) H 10/27/17 06:05 RDW 13.0 % (13.2-15.2) L 10/27/17 06:05 Plt Count 158 K/mm3 (140-440) 10/27/17 06:05 Lymph % (Auto) 9.8 % (13.4-35.0) L 10/27/17 06:05 [place] % (Auto) 7.4 % (0.0-7.3) H 10/27/17 06:05 Eos % (Auto) 0.6 % (0.0-4.3) 10/27/17 06:05 Baso % (Auto) 0.6 % (0.0-1.8) 10/27/17 06:05 Lymph # 0.6 K/mm3 (1.2-5.4) L 10/27/17 06:05 [place] # 0.4 K/mm3 (0.0-0.8) 10/27/17 06:05 Eos # 0.0 K/mm3 (0.0-0.4) 10/27/17 06:05 Baso # 0.0 K/mm3 (0.0-0.1) 10/27/17 06:05 Seg Neutrophils % 81.6 % (40.0-70.0) H 10/27/17 06:05 Seg Neutrophils # 4.6 K/mm3 (1.8-7.7) 10/27/17 06:05 Sodium 140 mmol/L (137-145) 10/27/17 05:03 Potassium 3.3 mmol/L (3.6-5.0) L 10/27/17 05:03 Chloride 100.4 mmol/L (98-107) 10/27/17 05:03 Carbon Dioxide 23 mmol/L (22-30) 10/27/17 05:03 Anion Gap 20 mmol/L 10/27/17 05:03 BUN 10 mg/dL (7-17) 10/27/17 05:03 Creatinine 0.6 mg/dL (0.7-1.2) L 10/27/17 05:03 Estimated GFR > 60 ml/min 10/27/17 05:03 BUN/Creatinine Ratio 17 % 10/27/17 05:03 Glucose 156 mg/dL (65-100) H 10/27/17 05:03 Hemoglobin A1c 4.7 % (4-6) 10/27/17 06:05 Calcium 8.5 mg/dL (8.4-10.2) 10/27/17 05:03 Total Bilirubin 1.00 mg/dL (0.1-1.2) 10/27/17 05:03 AST 68 units/L (5-40) H 10/27/17 05:03 ALT 52 units/L (7-56) 10/27/17 05:03 Alkaline Phosphatase 77 units/L (35-129) 10/27/17 05:03 Total Creatine Kinase 52 units/L (30-135) 10/27/17 12:15 CK-MB (CK-2) 1.2 ng/mL (0.0-4.0) 10/27/17 12:15 CK-MB (CK-2) Rel Index 2.3 (0-4) 10/27/17 12:15 Troponin T < 0.010 ng/mL (0.00-0.029) 10/27/17 12:15 Total Protein 6.1 g/dL (6.3-8.2) L 10/27/17 05:03 Albumin 3.4 g/dL (3.9-5) L 10/27/17 05:03 Albumin/Globulin Ratio 1.3 % 10/27/17 05:03 Triglycerides 63 mg/dL (2-149) 10/27/17 05:03 Cholesterol 156 mg/dL (50-199) 10/27/17 05:03 LDL Cholesterol Direct 95 mg/dL (50-130) 10/27/17 05:03 HDL Cholesterol 49 mg/dL (40-59) 10/27/17 05:03 Cholesterol/HDL Ratio 3.18 % 10/27/17 05:03 Urine Color Yellow (Yellow) 10/27/17 07:20 Urine Turbidity Clear (Clear) 10/27/17 07:20 Urine pH 5.0 (5.0-7.0) 10/27/17 07:20 Ur Specific [place] 1.020 (1.003-1.030) 10/27/17 07:20 Urine Protein 30 mg/dl mg/dL (Negative) 10/27/17 07:20 Urine Glucose (UA) 50 mg/dL (Negative) 10/27/17 07:20 Urine Ketones Tr mg/dL (Negative) 10/27/17 07:20 Urine Blood Mod (Negative) 10/27/17 07:20 Urine Nitrite Neg (Negative) 10/27/17 07:20 Urine Bilirubin Neg (Negative) 10/27/17 07:20 Urine Urobilinogen 4.0 mg/dL (<2.0) 10/27/17 07:20 Ur Leukocyte Esterase Neg (Negative) 10/27/17 07:20 Urine WBC (Auto) 3.0 /HPF (0.0-6.0) 10/27/17 07:20 Urine RBC (Auto) 6.0 /HPF (0.0-6.0) 10/27/17 07:20 U Epithel Cells (Auto) 3.0 /HPF (0-13.0) 10/27/17 07:20 Urine Bacteria (Auto) 2+ /HPF (Negative) 10/27/17 07:20 Urine Mucus 3+ /HPF 10/27/17 07:20
[2017-10-27] MEDS: IMDUR PO SCH ×2 (16:30→18:53)
[2017-10-27 21:43] LABS: Creatine Kinase MB 1.3 ng/mL (0.0-4.0)
[2017-10-28] MEDS: TAMIFLU PO SCH ×2 (02:33→09:53)
[2017-10-28 06:03] LABS: Basophils % (Auto) 0.5 % (0.0-1.8); Eosinophils # (Auto) 0.1 K/mm3 (0.0-0.4); Eosinophils % (Auto) 1.2 % (0.0-4.3); Hematocrit 38.1 % (30.3-42.9); Hemoglobin 13.2 gm/dl (10.1-14.3); Lymphocytes # (Auto) 1.2 K/mm3 (1.2-5.4); Lymphocytes % (Auto) 21.9 % (13.4-35.0); Mean Corpuscular HGB Conc 35 % (30-34); Mean Corpuscular Hemoglobin 29 pg (28-32); Mean Corpuscular Volume 83 fl (79-97); Monocytes # (Auto) 0.6 K/mm3 (0.0-0.8); Monocytes % (Auto) 11.3 % (0.0-7.3); Platelet Count 166 K/mm3 (140-440); Red Blood Count 4.59 M/mm3 (3.65-5.03); Red Cell Distribution Width 13.3 % (13.2-15.2)
[2017-10-28 06:19] LABS: Alanine Aminotransferase 143 units/L (7-56); Albumin 3.6 g/dL (3.9-5); BUN/Creatinine Ratio 13; Blood Urea Nitrogen 10 mg/dL (7-17); Calcium 8.7 mg/dL (8.4-10.2); Hemolysis Index 4
[2017-10-28] MEDS: PERCOCET 5/325 PO PRN ×2 (07:45→13:05)
[2017-10-28] MEDS: LEVAQUIN 750MG/150ML 750 MG/150 ML BAG IV SCH (09:39)
[2017-10-28] MEDS: HCTZ PO SCH (09:40)
[2017-10-28] MEDS: PEPCID PO SCH (09:40)
[2017-10-28] MEDS: ZESTRIL PO SCH ×2 (09:41→13:05)
[2017-10-28] MEDS: IMDUR PO SCH ×2 (09:41→13:05)
[2017-10-28] MEDS: LOPRESSOR PO SCH (09:41)
[2017-10-28] MEDS: LOVENOX SUB-Q SCH (09:41)
[2017-10-28] MEDS ORDERED: ECOTRIN PO SCH (10:00)
--- NOTE | 2017-10-28 11:03 | Progress Note ---
Assessment and Plan Assessment: Chest pain, atypical - improving; recurrent; ECG with NAF; troponin negative for AMI x 3 sets PNA H/o paroxysmal VT - ICD implantation 2013 with explantation 11/2015 per pt's request Nonobstructive CAD HTN GERD H/o adrenal land thickening with pheocyromocytoma ruled out per pt report Morbid obesity H/o depression, anxiety, and posttraumatic stress r/t inappropriate AICD shocks per pt report Plan: Pt reports that chest pain is nearly resolved. No plans for any repeat ischemic evaluation at this point. Cont present cardiac regimen. Treatment of PNA per primary. Pt may discharge home from cardiology standpoint. Recommend pt to follow up with her primary manager [place], Dr. Eduardo Alonso at [place], within 1-2 weeks of hospital discharge. Assessment and plan reviewed with pt at bedside. The patient has been seen in conjunction with Dr. Arguelles who agrees with the assessment and plan of care. Subjective Date of service: 10/28/17 Principal diagnosis: cp Interval history: Pt resting comfortably in bed, states chest pain is nearly resolved. Tele reviewed - pt in ST this AM. Objective Last Vital Signs Temp 97.5 F L 10/28/17 07:45 Pulse 81 10/28/17 07:45 Resp 18 10/28/17 07:45 BP 110/82 10/28/17 07:45 Pulse Ox 97 10/28/17 09:50 - Physical Examination General: No Apparent Distress HEENT: Positive: PERRL, Normocephaly, Mucus Membranes Moist Neck: Positive: neck supple, trachea midline Cardiac: Positive: Regular Rhythm, S1/S2, Tachycardia Lungs: Positive: Decreased Breath Sounds Neuro: Positive: Grossly Intact Abdomen: Positive: Soft. Negative: Tender Skin: Positive: Clear. Negative: Rash, Wound Musculoskeletal: No Fluid Collection, No Pain, Normal Range of Motion Extremities: Absent: edema - Labs and Meds Cardiac Enzymes 10/27/17 10/27/17 10/28/17 Range/Units 12:15 20:49 04:58 AST 90 H (5-40) units/L CK-MB (CK-2) 1.2 1.3 (0.0-4.0) ng/mL CBC 10/28/17 Range/Units 04:58 WBC 5.5 (4.5-11.0) K/mm3 RBC 4.59 (3.65-5.03) M/mm3 Hgb 13.2 (10.1-14.3) gm/dl Hct 38.1 (30.3-42.9) % Plt Count 166 (140-440) K/mm3 Lymph # 1.2 (1.2-5.4) K/mm3 [place] # 0.6 (0.0-0.8) K/mm3 Eos # 0.1 (0.0-0.4) K/mm3 Baso # 0.0 (0.0-0.1) K/mm3 Comprehensive Metabolic Panel 10/28/17 Range/Units 04:58 Sodium 143 (137-145) mmol/L Potassium 4.0 D (3.6-5.0) mmol/L Chloride 101.7 (98-107) mmol/L Carbon Dioxide 29 (22-30) mmol/L BUN 10 (7-17) mg/dL Creatinine 0.8 (0.7-1.2) mg/dL Glucose 91 (65-100) mg/dL Calcium 8.7 (8.4-10.2) mg/dL AST 90 H (5-40) units/L ALT 143 H (7-56) units/L Alkaline Phosphatase 99 (35-129) units/L Total Protein 6.4 (6.3-8.2) g/dL Albumin 3.6 L (3.9-5) g/dL - Imaging and Cardiology EKG: report reviewed, image reviewed Echo: report reviewed (10/10/2017 showed EF 50-55%, no significant valvular disease) Cardiac cath: report reviewed (11/13/2015, she underwent coronary angiography which revealed 50% mid RCA stenosis, 50% mid PDA, and a 50% proximal circumflex lesion) - Telemetry EKG Rhythm: Sinus Tachycardia - EKG Sinus rhythms and dysrhythmias: sinus tachycardia
--- NOTE | 2017-10-28 11:27 | Discharge Summary ---
Providers - Providers Date of Admission: 10/27/17 10:41 Date of discharge: 10/28/17 Attending physician: AKIRA PRIETO 10/27/17 06:52 Consult to Physician [CONS] Routine Consulting Provider: KITTY MATHIS Reason For Exam: Recurrent chest pains Place consult to:: [facility] Notified:: Dr eagle Phone number called:: [phone] Was contact made?: Yes If yes, spoke with:: Dr. Eagle Time called:: 19:30 Primary care physician: OUTSOLE FLEXER Hospitalization Condition: Stable Hospital course: Patient is a 46-year-old woman, who is employee at [employer] with a complicated cardiac history including multiple symptomatic PVCs and palpitations resulting in implantable loop recorder which discovered 2 episodes of V. tach. An ICD was placed; however, she had complications from that because the ICD repeatedly fired because it could not distinguish between SVT and V. tach. She developed PTSD and anxiety because she was getting electrical shocks internally until the device was removed in November 2015 at [facility]. She also underwent gastric sleeve by Dr. Ramos and has lost 80 lbs. She presented to [facility] ED with cough, flu like symptoms and chest discomfort. 2vCXR read as slight infiltrates left lower lung. -Chest pains most likely related to Left side Pneumonia with pleurisy -Left lower lung Pneumonia -paroxysmal SVT w/ h/o p. VT -CAD 10/28/17: per Network Services Project Manager: "Assessment: Chest pain, atypical - improving; recurrent; ECG with NAF; troponin negative for AMI x 3 sets PNA H/o paroxysmal VT - ICD implantation 2013 with explantation 11/2015 per pt's request Nonobstructive CAD HTN GERD H/o adrenal land thickening with pheocyromocytoma ruled out per pt report Morbid obesity H/o depression, anxiety, and posttraumatic stress r/t inappropriate AICD shocks per pt report Plan: Pt reports that chest pain is nearly resolved. No plans for any repeat ischemic evaluation at this point. Cont present cardiac regimen. Treatment of PNA per primary. Pt may discharge home from cardiology standpoint. Recommend pt to follow up with her primary circuit tester, Dr. Buck Alonso at [place], within 1-2 weeks of hospital discharge. Assessment and plan reviewed with pt at bedside. The patient has been seen in conjunction with Dr. Arguelles who agrees with the assessment and plan of care." Disposition: DC-01 TO HOME OR SELFCARE Time spent for discharge: 32 minutes Core Measure Documentation - Palliative Care Palliative Care/ Comfort Measures: Not Applicable - Core Measures Any of the following diagnoses?: none - VTE Discharge Requirements Deep Vein Thrombosis/Pulmonary Embolism Present on Admission: No Has pt received <5 days of overlap therapy or INR<2.0: No Anticoagulant overlap therapy prescribed at discharge: No Contraindication No Overlap Therapy order at DC: Not Indicated Exam - Physical Exam Narrative exam: GEN: WDWN, NAD, AWAKE, ALERT, ORIENTATED 3 HEENT: NCAT, EOMI, PERRL, OP Clear NECK: supple, no adenopathy, no thyromegaly, no JVD CVS/HEART: RRR, NORMAL S1S2, pulses present bilaterally CHEST/LUNGS: CTA B, Symmetrical chest expansion, good air entry bilaterally GI/Abdomen: soft, NTND, good bowel sounds, no guarding or rebound /Bladder: no suprapubic tenderness, no CVA or paraspinal tenderness EXT/Skin: no c/c/e, no obvious rash MSK: FROM x 4 Neuro: CN 2-12 grossly intact, no new focal deficits Psych: calm - Constitutional Vitals: Temp Pulse Resp BP Pulse Ox 97.5 F L 81 18 110/82 97 10/28/17 07:45 10/28/17 07:45 10/28/17 07:45 10/28/17 07:45 10/28/17 09:50 Plan Activity: other (no strenous activity until cleared by pcp) Diet: low salt Follow up with: BUCK KNOX MD [Staff Physician] - 7 Days PRIMARY CARE, [Primary Care Provider] - 3-5 Days Prescriptions: ALPRAZolam [Xanax TAB] 0.25 mg PO TID PRN #25 tablet PRN Reason: Anxiety Levofloxacin [Levaquin] 750 mg PO QDAY #5 tablet Oseltamivir [Tamiflu] 75 mg PO BID #8 capsule oxyCODONE /ACETAMINOPHEN [Percocet 5/325 mg] 1 tab PO Q6H PRN #20 tablet PRN Reason: Pain , Severe (7-10)
[2017-10-28 12:24] VITALS: BP 159/93
[2017-10-28] MEDS: XANAX PO PRN (13:32)
== END 2017-10-28 15:35 | disposition home or self-care (01) | DRG 194 ==
LOC: ED 13:45 → 4A 10-27 05:47 → EEVIPCON 10-27 05:47 → 4A 10-27 06:49 → OBSVTOIN 10-27 10:41
PROVIDERS: ADMIT Internal Medicine Geriatric Medicine; ATTEND Internal Medicine
DX: J10.00 Influenza due to other identified influenza virus with unspecified type of pneumonia (principal); I47.1 Supraventricular tachycardia; J18.1 Lobar pneumonia, unspecified organism; I10 Essential (primary) hypertension; I25.10 Atherosclerotic heart disease of native coronary artery without angina pectoris; K21.9 Gastro-esophageal reflux disease without esophagitis; E66.01 Morbid (severe) obesity due to excess calories; F32.9 Major depressive disorder, single episode, unspecified; F41.9 Anxiety disorder, unspecified; M19.90 Unspecified osteoarthritis, unspecified site; G43.909 Migraine, unspecified, not intractable, without status migrainosus; Z87.442 Personal history of urinary calculi; Z90.49 Acquired absence of other specified parts of digestive tract; Z95.810 Presence of automatic (implantable) cardiac defibrillator; Z98.84 Bariatric surgery status; Z68.32 Body mass index [BMI] 32.0-32.9, adult; Z90.710 Acquired absence of both cervix and uterus; Z79.82 Long term (current) use of aspirin
CPT/HCPCS: 36415; 71046; 80053; 80061; 81001; 82550; 82553; 83036; 83735; 84100; 84484; 85025; 93005; 93010; A9270-GY; J1650; J1956; J2270; J2405

== ENCOUNTER 2017-11-24 06:57 | Emergency (ER) | payer BC ==
[2017-11-24] MEDS ORDERED: ASPIRIN PO ONE (07:28)
[2017-11-24 08:07] LABS: BUN/Creatinine Ratio 15; Blood Urea Nitrogen 9 mg/dL (7-17); Calcium 9.3 mg/dL (8.4-10.2); Hemolysis Index 7
[2017-11-24 08:40] LABS: Basophils % (Auto) 0.6 % (0.0-1.8); Eosinophils # (Auto) 0.1 K/mm3 (0.0-0.4); Eosinophils % (Auto) 1.1 % (0.0-4.3); Hematocrit 41.5 % (30.3-42.9); Hemoglobin 13.8 gm/dl (10.1-14.3); Lymphocytes # (Auto) 1.3 K/mm3 (1.2-5.4); Lymphocytes % (Auto) 26.3 % (13.4-35.0); Mean Corpuscular HGB Conc 33 % (30-34); Mean Corpuscular Hemoglobin 28 pg (28-32); Mean Corpuscular Volume 85 fl (79-97); Monocytes # (Auto) 0.3 K/mm3 (0.0-0.8); Monocytes % (Auto) 5.2 % (0.0-7.3); Platelet Count 210 K/mm3 (140-440); Red Blood Count 4.89 M/mm3 (3.65-5.03); Red Cell Distribution Width 13.1 % (13.2-15.2)
[2017-11-24] MEDS ORDERED: ASPIRIN ONE (09:43)
--- NOTE | 2017-11-24 10:30 | Emergency Department Report ---
ED Chest Pain HPI - General Chief Complaint: Chest Pain Stated Complaint: CHEST PAIN,SOB,SVT Time Seen by Provider: 11/24/17 09:26 Source: patient, RN notes reviewed, old records reviewed Mode of arrival: Ambulatory Limitations: No Limitations - History of Present Illness Initial Comments: This is a 47-year-old female. The patient is previously unknown to this provider. Cardiology: Dr. Eduardo Alonso;[place] Past medical history: Nonobstructive coronary artery disease, reported from a cath in 2015, paroxysmal ventricular tachycardia/SVT, ICD implantation 2013 with explantation 2015, hypertension, GERD, history of adrenal gland thickening with pheochromocytoma excluded as per the patient, depression, anxiety, posttraumatic stress disorder This is a 47-year-old female who presents to the ER complaining of some chest pressure. She reports that at 6:00 this morning, she experienced some premature ventricular contractions, followed by a run of supraventricular tachycardia. This was accompanied by nausea, chest pressure. The chest pressure central, and described as heaviness. It is not related to the back, arms or neck. She also describes pleuritic chest wall pain. There is no posterior leg pain. There is no cough, fever or mucus production. She is pain- free at this time. His symptoms do not radiate anywhere, and we do not have exacerbating or relieving factors. Reports history of hysterectomy. Of note, patient had a nuclear stress test performed this hospital last month, which was negative for myocardial ischemia. MD Complaint: chest pain -: Sudden Onset: during rest Pain Location: substernal Pain Radiation: none Severity: mild, moderate Severity scale (0 -10): 5 Quality: tightness, heaviness Consistency: intermittent Improves With: nothing Worsens With: nothing re: nausea, dyspnea. denies: vomting, diaphoresis, sense of impending doom Other Symptoms: palpitations, other. denies: cough, fever, syncope, rash, acid taste in mouth, leg swelling Treatments Prior to Arrival: other (patient reports attempting vagal maneuvers) Aspirin use within the Past 7 Days: (1) Yes - Related Data On Oral Contraceptives: No Previous Rx's Medication Instructions Recorded Last Taken Type ALPRAZolam [Xanax TAB] 0.25 mg PO TID PRN #25 tablet 10/28/17 Unknown Rx Acetaminophen [Acetaminophen TAB] 650 mg PO Q4H PRN #30 tablet 10/28/17 Unknown Rx Aspirin [Aspirin TAB] 325 mg PO QDAY #30 10/28/17 2 Days Ago Rx ~10/25/17 AtorvaSTATin [Lipitor] 80 mg PO QHS #30 10/28/17 2 Days Ago Rx ~10/25/17 Famotidine [Pepcid] 20 mg PO BID #30 tablet 10/28/17 Unknown Rx Hydrochlorothiazide [HCTZ] 25 mg PO QDAY #30 tablet 10/28/17 Unknown Rx Levofloxacin [Levaquin] 750 mg PO QDAY #5 tablet 10/28/17 Unknown Rx Lisinopril [Zestril TAB] 10 mg PO QDAY #30 tablet 10/28/17 Unknown Rx Metoprolol [Lopressor TAB] 50 mg PO BID #60 tablet 10/28/17 Unknown Rx Oseltamivir [Tamiflu] 75 mg PO BID #8 capsule 10/28/17 Unknown Rx oxyCODONE /ACETAMINOPHEN [Percocet 1 tab PO Q6H PRN #20 tablet 10/28/17 Unknown Rx 5/325 mg] Allergies Allergy/AdvReac Type Severity Reaction Status Date / Time doxycycline AdvReac ulcers Verified 03/25/17 17:22 esophagus tetracycline [Tetracycline] AdvReac ulcers Verified 03/25/17 17:22 esophagus Heart Score - HEART Score History: Moderately suspicious EKG: Normal Age: 45-65 Risk factors: 1-2 risk factors Troponin: < normal limit HEART Score: 3 - Critical Actions Critical Actions: 0-3 pts:0.9-1.7%risk of adverse cardiac event.Candidate for discharge ED Review of Systems ROS: Stated complaint: CHEST PAIN,SOB,SVT Other details as noted in HPI Comment: All other systems reviewed and negative ED Past Medical Hx - Past Medical History Hx Hypertension: Yes Hx Congestive Heart Failure: No Hx Diabetes: No Hx GERD: Yes Hx Arthritis: Yes Hx Headaches / Migraines: Yes Hx Kidney Stones: Yes Hx Asthma: No Hx COPD: No Hx HIV: No Additional medical history: CAD (3 BLOCKAGES, NO STENTS). SVT - Surgical History Hx Pacemaker: Yes (Defribrillator removed) Hx Internal Defibrillator: (had defibrillator removed) Hx Cholecystectomy: Yes Additional Surgical History: hysterectomy 2013 - Social History Smoking Status: Never Smoker Substance Use Type: None - Medications Home Medications: Home Medications Medication Instructions Recorded Confirmed Last Taken Type ALPRAZolam [Xanax TAB] 0.25 mg PO TID PRN #25 tablet 10/28/17 Unknown Rx Acetaminophen [Acetaminophen TAB] 650 mg PO Q4H PRN #30 tablet 10/28/17 Unknown Rx Aspirin [Aspirin TAB] 325 mg PO QDAY #30 18 10/27/17 2 Days Ago Rx ~10/25/17 AtorvaSTATin [Lipitor] 80 mg PO QHS #30 10/28/17 10/27/17 2 Days Ago Rx ~10/25/17 Famotidine [Pepcid] 20 mg PO BID #30 tablet 10/28/17 Unknown Rx Hydrochlorothiazide [HCTZ] 25 mg PO QDAY #30 tablet 10/28/17 Unknown Rx Levofloxacin [Levaquin] 750 mg PO QDAY #5 tablet 10/28/17 Unknown Rx Lisinopril [Zestril TAB] 10 mg PO QDAY #30 tablet 10/28/17 Unknown Rx Metoprolol [Lopressor TAB] 50 mg PO BID #60 tablet 10/28/17 Unknown Rx Oseltamivir [Tamiflu] 75 mg PO BID #8 capsule 10/28/17 Unknown Rx oxyCODONE /ACETAMINOPHEN [Percocet 1 tab PO Q6H PRN #20 tablet 10/28/17 Unknown Rx 5/325 mg] ED Physical Exam - General Limitations: No Limitations General appearance: alert, anxious - Head Head exam: Present: atraumatic, normocephalic - Eye Eye exam: Present: normal appearance, EOMI. Absent: nystagmus - ENT ENT exam: Present: normal exam, normal orophraynx, mucous membranes moist, normal external ear exam - Neck Neck exam: Present: normal inspection, full ROM - Respiratory Respiratory exam: Present: normal lung sounds bilaterally. Absent: respiratory distress - Cardiovascular Cardiovascular Exam: Present: regular rate, normal rhythm, normal heart sounds. Absent: bradycardia, tachycardia, irregular rhythm, systolic murmur, diastolic murmur, rubs, gallop - GI/Abdominal GI/Abdominal exam: Present: soft, normal bowel sounds. Absent: distended, tenderness, guarding, rebound, pulsatile mass - Extremities Exam Extremities exam: Present: normal inspection, full ROM, normal capillary refill. Absent: pedal edema, joint swelling, calf tenderness - Back Exam Back exam: Present: normal inspection, full ROM. Absent: tenderness, CVA tenderness (R), paraspinal tenderness, vertebral tenderness - Neurological Exam Neurological exam: Present: alert, oriented X3, CN II-XII intact, normal gait, other (Extraocular movements intact. Tongue midline. No facial droop. Facial sensation intact to light touch in the V1, V2, V3 distribution bilaterally. 5 and 5 strength in 4 extremities.. Sensation is intact to light touch in 4 extremities.). Absent: motor sensory deficit - Psychiatric Psychiatric exam: Present: anxious - Skin Skin exam: Present: warm, dry, intact, normal color. Absent: rash ED Course Vital Signs 11/24/17 11/24/17 11/24/17 07:21 08:50 09:00 Temperature 97.9 F Pulse Rate 68 70 64 Respiratory 16 14 15 Rate Blood Pressure 158/87 135/79 O2 Sat by Pulse 100 100 Oximetry 11/24/17 11/24/17 11/24/17 09:16 09:30 09:46 Temperature Pulse Rate 60 73 62 Respiratory 14 11 L 16 Rate Blood Pressure 135/79 183/90 135/79 O2 Sat by Pulse 98 100 99 Oximetry 11/24/17 11/24/17 11/24/17 10:00 10:16 10:35 Temperature Pulse Rate 65 61 87 Respiratory 16 17 18 Rate Blood Pressure 166/94 183/90 166/94 O2 Sat by Pulse 100 99 95 Oximetry 11/24/17 10:46 Temperature Pulse Rate 62 Respiratory 15 Rate Blood Pressure 137/77 O2 Sat by Pulse 100 Oximetry - Reevaluation(s) Reevaluation #1: 11/24/17 10:47 The case was discussed with the patient's private circular knife cutter machine, Dr. Eduardo Alonso, who agrees the patient does not require admission for repeat ischemic evaluation, and further agrees to follow her up as an outpatient. He indicates that the patient's presentation today is consistent with her prior episodes of anxiety. Reevaluation #2: 11/24/17 11:31 D-dimer is negative. Troponins negative 2. Vital signs stable. Patient feels improved. Patient will be discharged. DONOVAN score - Donovan Score Age > 65: (0) No Aspirin use within the Past 7 Days: (0) No 3 or more CAD Risk Factors: (1) Yes 2 or more Angina events in past 24 hrs: (1) Yes Known CAD with more than 50% Stenosis: (0) No Elevated Cardiac Markers: (0) No ST Deviation Greater than 0.5mm: (0) No DONOVAN Score: 2 ED Medical Decision Making - Lab Data Result diagrams: 11/24/17 07:33 11/24/17 07:33 Vital Signs 11/24/17 11/24/17 07:21 09:30 Temperature 97.9 F Pulse Rate 68 Respiratory 16 18 Rate Blood Pressure 158/87 O2 Sat by Pulse 100 Oximetry Lab Results 11/24/17 11/24/17 Range/Units 07:33 07:33 WBC 4.9 (4.5-11.0) K/mm3 RBC 4.89 (3.65-5.03) M/mm3 Hgb 13.8 (10.1-14.3) gm/dl Hct 41.5 (30.3-42.9) % MCV 85 (79-97) fl MCH 28 (28-32) pg MCHC 33 (30-34) % RDW 13.1 L (13.2-15.2) % Plt Count 210 (140-440) K/mm3 Lymph % (Auto) 26.3 (13.4-35.0) % [place] % (Auto) 5.2 (0.0-7.3) % Eos % (Auto) 1.1 (0.0-4.3) % Baso % (Auto) 0.6 (0.0-1.8) % Lymph # 1.3 (1.2-5.4) K/mm3 [place] # 0.3 (0.0-0.8) K/mm3 Eos # 0.1 (0.0-0.4) K/mm3 Baso # 0.0 (0.0-0.1) K/mm3 Seg Neutrophils % 66.8 (40.0-70.0) % Seg Neutrophils # 3.2 (1.8-7.7) K/mm3 Sodium 141 (137-145) mmol/L Potassium 4.3 (3.6-5.0) mmol/L Chloride 102.0 (98-107) mmol/L Carbon Dioxide 26 (22-30) mmol/L Anion Gap 17 mmol/L BUN 9 (7-17) mg/dL Creatinine 0.6 L (0.7-1.2) mg/dL Estimated GFR > 60 ml/min BUN/Creatinine Ratio 15 % Glucose 99 (65-100) mg/dL Calcium 9.3 (8.4-10.2) mg/dL Troponin T < 0.010 (0.00-0.029) ng/mL - EKG Data -: EKG Interpreted by Me - EKG Data When compared to previous EKG there are: no significant change Interpretation: normal EKG 11/24/17 10:37 EKG #1 demonstrates normal sinus, 70 bpm, normal intervals, normal axis, not consistent with STEMI. EKG #2 was unchanged. Both EKGs unchanged from priorEKG earlier on in October. - Radiology Data Radiology results: pending, report reviewed X-ray of the chest is negative for acute disease, trace minimal bilateral pleural effusions, non-symptomatically and incidental. - Medical Decision Making Differential diagnosis, including but not limited to: GERD, gastritis, anxiety, stable angina, unstable angina, pneumonia, pulmonary embolus Assessment and plan: 47-year-old female with recurrent chest pain. Had a negative nuclear stress test last month. EKG unchanged 2. Had a catheterization in 2016 which demonstrated nonobstructive disease as per patient. Troponin negative 2. Low risk by well's criteria, 2 recent hospitalizations, does have pleuritic pain, perc negative; check d-dimer, and also discussed with her private circular knife cutter machine to arrange outpatient cardiology follow-up if pulmonary embolus is excluded. Patient declines pain medication, nausea medication at this time. Critical care attestation.: If time is entered above; I have spent that time in minutes in the direct care of this critically ill patient, excluding procedure time. ED Disposition Clinical Impression: Chest pain Disposition: -01 TO HOME OR SELFCARE Is pt being admited?: No Does the pt Need Aspirin: No Condition: Good Instructions: Chest Pain (ED) Additional Instructions: Continue current outpatient medications. Contact her primary circular knife cutter machine and follow-up within the next 3 days. Return to the ER right away with new pain, worsened pain, migration of pain, weakness, numbness, unsteady gait, change in mental status. Referrals: SOFIE DOYLE [Other] - 3-5 Days
--- NOTE | 2017-11-24 10:48 | XRay Report ---
ROUTINE CHEST, TWO VIEWS: HISTORY: Chest pain. Compared to 10/27/17. Trace bilateral pleural effusions are identified on the lateral image. The lungs are clear otherwise. Normal heart and mediastinal structures. The bony structures are grossly intact. Mild thoracic spondylosis is noted. IMPRESSION: Trace bilateral pleural effusions of uncertain etiology.
[2017-11-24 10:59] LABS: INR 0.84 (0.87-1.13)
[2017-11-24 11:55] VITALS: BP 164/97
== END 2017-11-24 11:56 | disposition home or self-care (01) ==
LOC: ED 06:57
DX: R07.89 Other chest pain (principal); I10 Essential (primary) hypertension; E11.9 Type 2 diabetes mellitus without complications; K21.9 Gastro-esophageal reflux disease without esophagitis; M19.90 Unspecified osteoarthritis, unspecified site; G43.909 Migraine, unspecified, not intractable, without status migrainosus; Z88.1 Allergy status to other antibiotic agents
CPT/HCPCS: 36415; 71046; 80048; 84484; 85025; 85379; 85610; 93005; 93010; 99284

== ENCOUNTER 2017-12-12 11:38 | Emergency (ER) | payer BC ==
[2017-12-12] MEDS ORDERED: ASPIRIN PO ONE (11:52)
[2017-12-12 12:26] LABS: Basophils # (Auto) 0.1 K/mm3 (0.0-0.1); Basophils % (Auto) 0.8 % (0.0-1.8); Eosinophils # (Auto) 0.1 K/mm3 (0.0-0.4); Eosinophils % (Auto) 1.3 % (0.0-4.3); Hemoglobin 13.9 gm/dl (10.1-14.3); Lymphocytes # (Auto) 1.9 K/mm3 (1.2-5.4); Lymphocytes % (Auto) 28.7 % (13.4-35.0); Mean Corpuscular HGB Conc 35 % (30-34); Mean Corpuscular Hemoglobin 29 pg (28-32); Mean Corpuscular Volume 83 fl (79-97); Monocytes # (Auto) 0.4 K/mm3 (0.0-0.8); Monocytes % (Auto) 5.7 % (0.0-7.3); Platelet Count 206 K/mm3 (140-440); Red Blood Count 4.84 M/mm3 (3.65-5.03); Red Cell Distribution Width 13.1 % (13.2-15.2)
[2017-12-12 12:42] LABS: BUN/Creatinine Ratio 22; Blood Urea Nitrogen 13 mg/dL (7-17); Calcium 9.6 mg/dL (8.4-10.2); Hemolysis Index 6
--- NOTE | 2017-12-12 15:45 | Emergency Department Report ---
ED General Adult HPI - General Chief complaint: Arrhythmia/Palpitations Stated complaint: ARRHITHMIA Time Seen by Provider: 12/12/17 15:29 Source: patient Mode of arrival: Ambulatory Limitations: No Limitations - History of Present Illness Initial comments: Mrs. Broderick is a very pleasant 47-year-old female with history of SVT ventricular tachycardia PVCs presents with chest pain and arrhythmia. She feels palpitations. She feels painful PVCs. She was recently admitted in October for cardiac evaluation with normal stress test. Recent Cardiology f/u with cardiologst Dr. Alonso who added Cardizem to her regimen. She now takes metoprolol 50 mg in the morning 25 mg in the evening. She is taking Cardizem 120 mg once a day. SHe feels "out of rhythm". She recently been treated for influenza and pneumonia several weeks ago. She denies fever. Denies abdominal pain. Denies leg pain. Denies shortness of breath. Denies recent travel. Family history several male relatives including father, paternal grandfather and uncles with sudden cardiac . Father in his 60s. Father had his first heart attack age 18. Consequently patient did have AICD placed. However it was removed because she had continued frequent firing due to SVT. -: Gradual Consistency: constant Improves with: none Worsens with: none Associated Symptoms: chest pain. denies: headaches, loss of appetite, malaise, nausea/vomiting, shortness of breath, syncope, weakness - Related Data Previous Rx's Medication Instructions Recorded Last Taken Type ALPRAZolam [Xanax TAB] 0.25 mg PO TID PRN #25 tablet 10/28/17 Unknown Rx Acetaminophen [Acetaminophen TAB] 650 mg PO Q4H PRN #30 tablet 10/28/17 Unknown Rx Aspirin [Aspirin TAB] 325 mg PO QDAY #30 10/28/17 2 Days Ago Rx ~10/25/17 AtorvaSTATin [Lipitor] 80 mg PO QHS #30 10/28/17 2 Days Ago Rx ~10/25/17 Famotidine [Pepcid] 20 mg PO BID #30 tablet 10/28/17 Unknown Rx Hydrochlorothiazide [HCTZ] 25 mg PO QDAY #30 tablet 10/28/17 Unknown Rx Levofloxacin [Levaquin] 750 mg PO QDAY #5 tablet 10/28/17 Unknown Rx Lisinopril [Zestril TAB] 10 mg PO QDAY #30 tablet 10/28/17 Unknown Rx Metoprolol [Lopressor TAB] 50 mg PO BID #60 tablet 10/28/17 Unknown Rx Oseltamivir [Tamiflu] 75 mg PO BID #8 capsule 10/28/17 Unknown Rx oxyCODONE /ACETAMINOPHEN [Percocet 1 tab PO Q6H PRN #20 tablet 10/28/17 Unknown Rx 5/325 mg] Allergies Allergy/AdvReac Type Severity Reaction Status Date / Time doxycycline AdvReac ulcers Verified 03/25/17 17:22 esophagus tetracycline [Tetracycline] AdvReac ulcers Verified 03/25/17 17:22 esophagus ED Review of Systems ROS: Stated complaint: ARRHITHMIA Other details as noted in HPI Comment: All other systems reviewed and negative Constitutional: denies: fever, malaise Respiratory: denies: cough Cardiovascular: chest pain, palpitations Gastrointestinal: denies: abdominal pain, nausea, vomiting, diarrhea ED Past Medical Hx - Past Medical History Hx Hypertension: Yes Hx Congestive Heart Failure: No Hx Diabetes: No Hx GERD: Yes Hx Arthritis: Yes Hx Headaches / Migraines: Yes Hx Kidney Stones: Yes Hx Asthma: No Hx COPD: No Hx HIV: No Additional medical history: CAD (3 BLOCKAGES, NO STENTS). SVT - Surgical History Hx Pacemaker: Yes (Defribrillator removed) Hx Internal Defibrillator: (had defibrillator removed) Hx Cholecystectomy: Yes Additional Surgical History: hysterectomy 2013 - Social History Smoking Status: Never Smoker Substance Use Type: None - Medications Home Medications: Home Medications Medication Instructions Recorded Confirmed Last Taken Type ALPRAZolam [Xanax TAB] 0.25 mg PO TID PRN #25 tablet 10/28/17 Unknown Rx Acetaminophen [Acetaminophen TAB] 650 mg PO Q4H PRN #30 tablet 10/28/17 Unknown Rx Aspirin [Aspirin TAB] 325 mg PO QDAY #30 10/28/17 10/27/17 2 Days Ago Rx ~10/25/17 AtorvaSTATin [Lipitor] 80 mg PO QHS #30 10/28/17 10/27/17 2 Days Ago Rx ~10/25/17 Famotidine [Pepcid] 20 mg PO BID #30 tablet 10/28/17 Unknown Rx Hydrochlorothiazide [HCTZ] 25 mg PO QDAY #30 tablet 02/20/18 Unknown Rx Levofloxacin [Levaquin] 750 mg PO QDAY #5 tablet 10/28/17 Unknown Rx Lisinopril [Zestril TAB] 10 mg PO QDAY #30 tablet 10/28/17 Unknown Rx Metoprolol [Lopressor TAB] 50 mg PO BID #60 tablet 10/28/17 Unknown Rx Oseltamivir [Tamiflu] 75 mg PO BID #8 capsule 10/28/17 Unknown Rx oxyCODONE /ACETAMINOPHEN [Percocet 1 tab PO Q6H PRN #20 tablet 10/28/17 Unknown Rx 5/325 mg] ED Physical Exam - General Limitations: No Limitations General appearance: alert, in no apparent distress - Head Head exam: Present: atraumatic, normocephalic - Eye Eye exam: Present: normal appearance - ENT ENT exam: Present: mucous membranes moist - Neck Neck exam: Present: normal inspection. Absent: tenderness, meningismus - Respiratory Respiratory exam: Present: normal lung sounds bilaterally. Absent: respiratory distress, wheezes, rales, rhonchi - Cardiovascular Cardiovascular Exam: Present: regular rate, normal rhythm, normal heart sounds. Absent: systolic murmur, diastolic murmur, rubs, gallop - GI/Abdominal GI/Abdominal exam: Present: soft, normal bowel sounds. Absent: distended, tenderness, guarding, rebound - Extremities Exam Extremities exam: Present: normal inspection - Back Exam Back exam: Present: normal inspection - Neurological Exam Neurological exam: Present: alert, oriented X3 - Psychiatric Psychiatric exam: Present: normal affect, normal mood - Skin Skin exam: Present: warm, dry, intact, normal color. Absent: rash ED Course Vital Signs 12/12/17 12/12/17 12/12/17 11:49 15:38 15:40 Temperature 98.6 F Pulse Rate 89 68 68 Respiratory 20 11 L 14 Rate Blood Pressure 157/87 136/74 O2 Sat by Pulse 97 Oximetry 12/12/17 12/12/17 12/12/17 15:50 15:56 15:57 Temperature 98.1 F Pulse Rate 70 70 Respiratory 15 16 16 Rate Blood Pressure 131/82 131/82 O2 Sat by Pulse 99 98 100 Oximetry 12/12/17 12/12/17 12/12/17 16:00 16:06 16:08 Temperature Pulse Rate 68 75 75 Respiratory 15 18 15 Rate Blood Pressure 130/76 130/76 130/76 O2 Sat by Pulse 99 98 98 Oximetry 12/12/17 12/12/17 12/12/17 16:10 16:12 16:14 Temperature Pulse Rate 73 76 68 Respiratory 14 15 13 Rate Blood Pressure 130/76 130/76 130/76 O2 Sat by Pulse 97 100 98 Oximetry 12/12/17 12/12/17 12/12/17 16:16 16:18 16:20 Temperature Pulse Rate 77 71 73 Respiratory 12 18 13 Rate Blood Pressure 144/80 144/80 144/80 O2 Sat by Pulse 99 98 99 Oximetry 12/12/17 12/12/17 12/12/17 16:22 16:24 16:26 Temperature Pulse Rate 72 79 69 Respiratory 13 10 L 13 Rate Blood Pressure 144/80 144/80 144/80 O2 Sat by Pulse 99 98 99 Oximetry 12/12/17 12/12/17 12/12/17 16:28 16:30 16:32 Temperature Pulse Rate 74 68 72 Respiratory 13 15 16 Rate Blood Pressure 144/80 152/89 152/89 O2 Sat by Pulse 99 98 98 Oximetry 12/12/17 12/12/17 16:34 16:36 Temperature Pulse Rate 75 73 Respiratory 12 12 Rate Blood Pressure 152/89 152/89 O2 Sat by Pulse 100 98 Oximetry ED Medical Decision Making - Lab Data Result diagrams: 12/12/17 12:05 12/12/17 12:05 Vital Signs - 24 hr 12/12/17 11:49 Temperature 98.6 F Pulse Rate 89 Respiratory 20 Rate Blood Pressure 157/87 O2 Sat by Pulse 97 Oximetry - EKG Data -: EKG Interpreted by Me EKG shows normal: sinus rhythm, axis, intervals, QRS complexes, ST-T waves Rate: normal - EKG Data 12/12/17 15:46 NSR nl rate nl axis nl intervals no ST-T signs of ischemia no ST elevation rate 65 bpm - Medical Decision Making Mrs. Broderick has a history of PVCs, ventricular tachycardia and SVT. She has a history of nonobstructive coronary artery disease with several 50% percent lesions. She has history of PTSD and anxiety which she is well aware of. I spoke with her electrical and radio aircraft mechanic [place] Dr. Eduardo Alonso who was quite helpful and insightful. He has followed patient for 5 years. He understands there is an anxiety component. He encouraged use of Lexapro. I observed the patient on groundwater monitoring technician for 2 hours. She did not have PVCs ventricular tachycardia or SVT in the ED. No arrhythmia on the groundwater monitoring technician. Mrs. Broderick is well aware that she is quite "fearful" and anxious. She's concerned about potential dependence on Xanax. Consequently she limits her use to every other day of this medication. She stated that she took one dose of Lexapro prescribed to her by Dr. Alonso. However she developed SVT the following day. She feels the Lexapro will worsen her palpitations. She appreciated the reassurance. She understands she does not have a life- threatening injury. She understands that her risk of a major cardiac event is low at this time with her extensive recent cardiac evaluation. She has access to Dr. Alonso as needed. She also has a PCP. Critical care attestation.: If time is entered above; I have spent that time in minutes in the direct care of this critically ill patient, excluding procedure time. ED Disposition Clinical Impression: Palpitations, Chest pain Disposition: DC-01 TO HOME OR SELFCARE Is pt being admited?: No Does the pt Need Aspirin: No Condition: Stable Instructions: Chest Pain (ED), Palpitations (ED) Referrals: SOFIE TAYLOR MD, PHD [Primary Care Provider] - 3-5 Days Time of Disposition: 17:36
[2017-12-12 18:03] VITALS: BP 131/75
== END 2017-12-12 18:04 | disposition home or self-care (01) ==
LOC: ED 11:38
DX: R07.89 Other chest pain (principal); R00.2 Palpitations; Z88.1 Allergy status to other antibiotic agents; I10 Essential (primary) hypertension; K21.9 Gastro-esophageal reflux disease without esophagitis; Z87.442 Personal history of urinary calculi; Z95.0 Presence of cardiac pacemaker; Z90.710 Acquired absence of both cervix and uterus; Z90.49 Acquired absence of other specified parts of digestive tract; Z79.82 Long term (current) use of aspirin
CPT/HCPCS: 36415; 80048; 84484; 85025; 93005; 93010; 99283

== ENCOUNTER 2017-12-23 11:54 | Outpatient (CLI) | payer BC ==
--- NOTE | 2017-12-24 09:40 | Cat Scan Report ---
CT ABDOMEN AND PELVIS WITHOUT AND WITH CONTRAST: 12/23/17 11:54:00 CLINICAL: Followup left adrenal nodule. COMPARISON: None TECHNIQUE: Volumetric acquisition and 1.25 millimeter scan reconstructions without contrast and after the uneventful intravenous injection of 100 cc Omnipaque 300. Consent was obtained prior to the administration of contrast. Oral contrast was also given. FINDINGS: Abdomen: Clear lung bases. Normal liver and bile ducts status post cholecystectomy. Normal stomach status post gastric sleeve procedure. Normal duodenum, pancreas and spleen. A stable 1.3 cm splenule the posterior aspect of the mid spleen. Mild calcification of the abdominal aorta and iliac arteries. Splenic artery calcifications but no SMA or renal artery calcifications. The left kidney measures 11.7 cm in length and the right kidney measures 11.1 cm in length. A 1.4 cm exophytic cyst of the upper pole of the left kidney. The renal collecting systems and ureters are nondilated. No renal mass or calculus. Increased size of the medial limb of the left adrenal gland compared to the last exam. It measures 12 mm compared to 10 mm. It measures 13.0 Hounsfield units precontrast and 44 Hounsfield units postcontrast. The right adrenal gland is normal. The small bowel is normal. Normal ascending, transverse and descending colon. The appendix is well imaged and normal. No mass or lymphadenopathy. No ascites. Pelvis: Absence of the uterus and a normal vaginal cuff. Normal urinary bladder and rectum. The left ovary is normal with a 1.9 cm follicle. Normal right ovary with a 1.7 cm follicle. Normal sigmoid colon. No adnexal mass or free fluid. Bone windows demonstrate no suspicious bone lesion. IMPRESSION:1. Mild enlargement of the medial limb of the left adrenal gland with increased size of the medial limb compared to the last exam. No distinct adrenal nodule or mass is identified. 2. No abdominal mass or lymphadenopathy. 3. Status post cholecystectomy. 4. Mild calcification of the abdominal vasculature and no evidence of right artery stenosis. 5. Status post cholecystectomy, gastric sleeve procedure and hysterectomy.
== END 2017-12-23 11:55 | disposition home or self-care (01) ==
LOC: SPVIMAG 11:54
DX: N28.1 Cyst of kidney, acquired (principal); E27.9 Disorder of adrenal gland, unspecified; I70.0 Atherosclerosis of aorta; Z90.710 Acquired absence of both cervix and uterus; Z90.49 Acquired absence of other specified parts of digestive tract; Z98.890 Other specified postprocedural states
CPT/HCPCS: 74178; Q9967

== ENCOUNTER 2018-02-11 08:14 | Outpatient (CLI) | payer BC ==
--- NOTE | 2018-02-11 11:53 | Mammography Report ---
BILATERAL DIGITAL SCREENING MAMMOGRAM with CAD: 02/11/18 08:14:00 CLINICAL: Routine screening. COMPARISON:01/24/17 FINDINGS: The breasts are heterogeneously dense, which may obscure small masses. No mass, architectural distortion or suspicious calcifications. IMPRESSION: No mammographic evidence of malignancy. BI-RADS CATEGORY: 1 - - Negative RECOMMENDATION: Routine mammographic screening in one year. COMMENT: Patient follow-up letters are generated by our [employer] application.
== END 2018-02-11 08:15 | disposition home or self-care (01) ==
LOC: SPVWC 08:14
DX: Z12.31 Encounter for screening mammogram for malignant neoplasm of breast (principal); I25.10 Atherosclerotic heart disease of native coronary artery without angina pectoris; I10 Essential (primary) hypertension; E66.01 Morbid (severe) obesity due to excess calories; K21.9 Gastro-esophageal reflux disease without esophagitis; E78.00 Pure hypercholesterolemia, unspecified; F41.9 Anxiety disorder, unspecified; M19.90 Unspecified osteoarthritis, unspecified site; Z98.890 Other specified postprocedural states; Z90.49 Acquired absence of other specified parts of digestive tract; Z87.891 Personal history of nicotine dependence
CPT/HCPCS: 77067

== ENCOUNTER 2018-11-10 07:54 | Inpatient (IN) | payer BC ==
[2018-11-10 08:28] LABS: Basophils % (Auto) 0.9 % (0.0-1.8); Eosinophils # (Auto) 0.1 K/mm3 (0.0-0.4); Eosinophils % (Auto) 1.4 % (0.0-4.3); Hematocrit 38.4 % (30.3-42.9); Hemoglobin 13.7 gm/dl (10.1-14.3); Lymphocytes # (Auto) 1.7 K/mm3 (1.2-5.4); Lymphocytes % (Auto) 33.2 % (13.4-35.0); Mean Corpuscular HGB Conc 36 % (30-34); Mean Corpuscular Volume 83 fl (79-97); Monocytes # (Auto) 0.2 K/mm3 (0.0-0.8); Monocytes % (Auto) 4.7 % (0.0-7.3); Platelet Count 212 K/mm3 (140-440); Red Blood Count 4.61 M/mm3 (3.65-5.03); Red Cell Distribution Width 12.9 % (13.2-15.2)
--- NOTE | 2018-11-10 08:36 | Emergency Department Report ---
ED Chest Pain HPI - General Chief Complaint: Chest Pain Stated Complaint: DIZZINESS/N/V/CHEST PAIN Time Seen by Provider: 11/10/18 08:33 Source: patient Mode of arrival: Ambulatory Limitations: No Limitations - History of Present Illness Initial Comments: She is a 48-year-old female with a complex medical history of SVT and ventricular tachycardia. She has previously had an AICD. Now she has a loop recorder. She has a history of nonobstructive coronary artery disease. She was last admitted to this facility for evaluation and 2018 with the following note from cardiology: Assessment: Chest pain, atypical - recurrent; ECG with NAF; troponin negative for AMI x 3 sets H/o paroxysmal VT - ICD implantation 2013 with explantation 11/2015 per pt's request Loop recorder in situ - placed 01/2018 Nonobstructive CAD HTN GERD H/o adrenal land thickening with pheocyromocytoma ruled out per pt report Morbid obesity H/o depression, anxiety, and posttraumatic stress r/t inappropriate AICD shocks per pt report Plan: Loop recorder interrogation revealed no arrhythmias. S/p LHC this AM which showed nonobstructive CAD, normal LVEF. Currently stable cardiac status. Pt may discharge home from cardiology standpoint following completion of post-cath order set. Recommend pt follow up with her primary calculating machine operator at [facility], juwan [place]ks[place] 1-2 weeks of hospital discharge. Assessment and plan reviewed with pt at bedside. The patient has been seen in conjunction with Dr. Cruz who agrees with the assessment and plan of care. Patient was just started on Effexor by her calculating machine operator at [facility]. She states that this was a medication that was given to her to reduce anxiety which would reduce the incidence of SVT. In any case patient did not check her pulse this morning during her symptoms. She felt like her heart might of been running fast. She did push the button on her current loop recorder to transmit her he art rhythm. She stated that she had some chest pain to triage complaining of that to me. She predominantly complains of tingling involving her face hands and really her entire body. She also complained of dizziness. She states the symptoms of paresthesias are somewhat persistent. She was nauseated but this has resolved. Her chest pain has resolved. She states she has persistent dizziness. Her blood pressure was about 165/90 during my encounter. MD Complaint: chest pain -: Gradual Onset: during rest (started at about 7 AM while the patient was here working at this facility.) Pain Location: substernal Pain Radiation: none Severity scale (0 -10): 5 Quality: tightness Consistency: now resolved Improves With: nothing Worsens With: nothing re: nausea Other Symptoms: denies: cough, fever, syncope Treatments Prior to Arrival: none - Related Data Home Medications Medication Instructions Recorded Confirmed Last Taken dilTIAZem CD [Cardizem CD] 120 mg PO DAILY 03/19/18 03/19/18 03/16/18 Previous Rx's Medication Instructions Recorded Last Taken Type Metoprolol [Lopressor TAB] 50 mg PO BID #60 tablet 10/28/17 03/13/18 06:00 Rx 50mg ALPRAZolam [Xanax TAB] 0.25 mg PO TID PRN #25 tablet 03/19/18 Unknown Rx Aspirin [Aspirin TAB] 325 mg PO QDAY #30 tablet 03/19/18 Unknown Rx AtorvaSTATin [Lipitor] 80 mg PO QHS #30 tablet 03/19/18 Unknown Rx Metoprolol Xl [Metoprolol 50 mg PO QDAY #30 tablet 03/19/18 Unknown Rx SUCCINATE ER TAB] Pantoprazole [Protonix TAB] 40 mg PO QDAY #30 tablet 03/19/18 Unknown Rx dilTIAZem CD [Cardizem CD] 120 mg PO QDAY #30 capsule 03/19/18 Unknown Rx Allergies Allergy/AdvReac Type Severity Reaction Status Date / Time doxycycline AdvReac ulcers Verified 03/16/18 19:20 esophagus tetracycline [Tetracycline] AdvReac ulcers Verified 03/16/18 19:20 esophagus Heart Score - HEART Score History: Slightly suspicious EKG: Non-specific Age: 45-65 Risk factors: 1-2 risk factors Troponin: < normal limit HEART Score: 3 - Critical Actions Critical Actions: 0-3 pts:0.9-1.7%risk of adverse cardiac event.Candidate for discharge ED Review of Systems ROS: Stated complaint: DIZZINESS/N/V/CHEST PAIN Other details as noted in HPI Constitutional: denies: chills, fever Eyes: denies: eye pain, eye discharge, vision change ENT: denies: ear pain, throat pain Respiratory: denies: cough, shortness of breath, wheezing Cardiovascular: chest pain. denies: palpitations Endocrine: no symptoms reported Gastrointestinal: nausea. denies: abdominal pain, diarrhea Genitourinary: denies: urgency, dysuria, discharge Musculoskeletal: denies: back pain, joint swelling, arthralgia Skin: denies: rash, lesions Neurological: paresthesias. denies: headache, weakness Psychiatric: denies: anxiety, depression Hematological/Lymphatic: denies: easy bleeding, easy bruising ED Past Medical Hx - Past Medical History Previous Medical History?: Yes Hx Hypertension: Yes Hx Congestive Heart Failure: No Hx Diabetes: No Hx GERD: Yes Hx Arthritis: Yes Hx Headaches / Migraines: Yes Hx Kidney Stones: Yes Hx Asthma: No Hx COPD: No Hx HIV: No Additional medical history: CAD (3 BLOCKAGES, NO STENTS). SVT - Surgical History Past Surgical History?: Yes Hx Pacemaker: Yes (Defribrillator removed) Hx Internal Defibrillator: (had defibrillator removed) Hx Cholecystectomy: Yes Additional Surgical History: hysterectomy 2013 - Social History Smoking Status: Never Smoker Substance Use Type: None - Medications Home Medications: Home Medications Medication Instructions Recorded Confirmed Last Taken Type Metoprolol [Lopressor TAB] 50 mg PO BID #60 tablet 10/28/17 03/17/18 03/13/18 06:00 Rx 50mg ALPRAZolam [Xanax TAB] 0.25 mg PO TID PRN #25 tablet 03/19/18 Unknown Rx Aspirin [Aspirin TAB] 325 mg PO QDAY #30 tablet 03/19/18 Unknown Rx AtorvaSTATin [Lipitor] 80 mg PO QHS #30 tablet 03/19/18 Unknown Rx Metoprolol Xl [Metoprolol 50 mg PO QDAY #30 tablet 03/19/18 Unknown Rx SUCCINATE ER TAB] Pantoprazole [Protonix TAB] 40 mg PO QDAY #30 tablet 03/19/18 Unknown Rx dilTIAZem CD [Cardizem CD] 120 mg PO DAILY 03/19/18 03/19/18 03/16/18 History dilTIAZem CD [Cardizem CD] 120 mg PO QDAY #30 capsule 03/19/18 Unknown Rx ED Physical Exam - General Limitations: No Limitations General appearance: alert, in no apparent distress - Head Head exam: Present: atraumatic, normocephalic - Eye Eye exam: Present: normal appearance, PERRL, EOMI. Absent: scleral icterus - ENT ENT exam: Present: mucous membranes moist - Neck Neck exam: Present: normal inspection. Absent: tenderness, meningismus - Respiratory Respiratory exam: Present: normal lung sounds bilaterally. Absent: respiratory distress - Cardiovascular Cardiovascular Exam: Present: regular rate, normal rhythm. Absent: systolic murmur, diastolic murmur, rubs, gallop - GI/Abdominal GI/Abdominal exam: Present: soft, normal bowel sounds. Absent: distended, tenderness, guarding, rebound, rigid - Extremities Exam Extremities exam: Present: normal inspection - Back Exam Back exam: Present: normal inspection - Neurological Exam Neurological exam: Present: alert, oriented X3, CN II-XII intact. Absent: motor sensory deficit - Psychiatric Psychiatric exam: Present: normal affect, normal mood - Skin Skin exam: Present: warm, dry, intact, normal color. Absent: rash ED Course Vital Signs 11/10/18 11/10/18 11/10/18 08:14 08:16 08:21 Temperature 97.6 F Pulse Rate 80 80 88 Respiratory 19 18 22 Rate Blood Pressure Blood Pressure 148/80 [Left] O2 Sat by Pulse 99 98 Oximetry 11/10/18 11/10/18 11/10/18 08:30 08:45 09:00 Temperature Pulse Rate 78 75 76 Respiratory 18 19 14 Rate Blood Pressure 150/83 161/88 155/82 Blood Pressure [Left] O2 Sat by Pulse 97 98 97 Oximetry - Reevaluation(s) Reevaluation #1: Patient is clinically stable. I will defer further workup to the hospitalist staff. She has persistent symptoms of dizziness. He did take a Xanax this morning. The degree of which anxiety is participating in these symptoms is possibly significant. However, I think it is best to admit the patient for observation at this point. 11/10/18 09:57 MITCH score - Mitch Score Age > 65: (0) No Aspirin use within the Past 7 Days: (0) No 3 or more CAD Risk Factors: (1) Yes 2 or more Angina events in past 24 hrs: (1) Yes Known CAD with more than 50% Stenosis: (0) No Elevated Cardiac Markers: (0) No ST Deviation Greater than 0.5mm: (0) No MITCH Score: 2 ED Medical Decision Making - Lab Data Result diagrams: 11/10/18 08:03 11/10/18 08:03 Laboratory Results - last 24 hr 11/10/18 08:03 WBC 5.2 RBC 4.61 Hgb 13.7 Hct 38.4 MCV 83 MCH 30 MCHC 36 H RDW 12.9 L Plt Count 212 Lymph % (Auto) 33.2 [place] % (Auto) 4.7 Eos % (Auto) 1.4 Baso % (Auto) 0.9 Lymph # 1.7 [place] # 0.2 Eos # 0.1 Baso # 0.0 Seg Neutrophils % 59.8 Seg Neutrophils # 3.1 - EKG Data -: EKG Interpreted by Me EKG shows normal: sinus rhythm, axis, intervals, QRS complexes Rate: normal - EKG Data Interpretation: nonspecific ST-T wave bradley (mild nonspecific changes) Critical care attestation.: If time is entered above; I have spent that time in minutes in the direct care of this critically ill patient, excluding procedure time. ED Disposition Clinical Impression: Poorly-controlled hypertension, Dizziness, Paresthesias Chest pain Qualifiers: Chest pain type: unspecified Qualified Code(s): R07.9 - Chest pain, unspecified Disposition: -09 OP ADMIT IP TO THIS HOSP Is pt being admited?: Yes Does the pt Need Aspirin: Yes Condition: Stable Instructions: Chest Pain (ED) Time of Disposition: 10:00
[2018-11-10 08:58] LABS: BUN/Creatinine Ratio 23; Blood Urea Nitrogen 14 mg/dL (7-17); Calcium 9.2 mg/dL (8.4-10.2); Hemolysis Index 8
[2018-11-10] MEDS ORDERED: ATIVAN PO ONE (09:09)
[2018-11-10] MEDS ORDERED: BABY ASPIRIN PO ONE (10:00)
--- NOTE | 2018-11-10 11:04 | Cat Scan Report ---
CT HEAD WITHOUT CONTRAST: HISTORY: Headache, dizziness. TECHNIQUE: Sequential 2.5mm CT images. COMPARISON: 10/10/17. FINDINGS: Cerebral Parenchyma: Within normal limits. Cerebellum: Within normal limits. Brainstem: Within normal limits. Ventricles: Normal. Sella: Normal. Extra-axial spaces: Normal. Basal Cisterns: Normal. Intracranial Hemorrhage: None. Midline Shift: None. Calvarium: Normal. Sinuses: Normal. Mastoid Air Cells: Normal. Visualized Orbits: Normal. IMPRESSION: Cranial CT scan within normal limits.
[2018-11-10] MEDS ORDERED: XANAX PO PRN (11:26)
--- NOTE | 2018-11-10 11:31 | History and Physical Report ---
History of Present Illness Date of examination: 11/10/18 Date of admission: 11/10/18 Chief complaint: Dizziness/nausea or vomiting/chest pain History of present illness: 48-year-old obese female patient with significant past medical history of coronary artery disease paroxysmal VT, POTs disease ,hypertension osteoarthritis and anxiety disorder, . Presented to the emergency room with generalized weakness and dizziness and chest pain, Patient was recently started on Effexor and started her first dose early this morning when she developed palpitations and dizziness nausea as well as chest pain and pressure, Patient also reports mild headache. Symptoms slightly improved at the time of my evaluation, First set of cardiac enzymes negative, CT head without contrast no acute abnormalities noted Past History Past Medical History: arrhythmia, arthritis, CAD, GERD, hypertension, hyperlipidemia Past Surgical History: cholecystectomy, hysterectomy, Other (event monitor placement) Social history: lives with family, full code. denies: smoking, alcohol abuse Family history: hypertension Medications and Allergies Allergies Allergy/AdvReac Type Severity Reaction Status Date / Time doxycycline AdvReac ulcers Verified 03/16/18 19:20 esophagus tetracycline [Tetracycline] AdvReac ulcers Verified 03/16/18 19:20 esophagus Home Medications Medication Instructions Recorded Confirmed Last Taken Type ALPRAZolam [Xanax TAB] 0.25 mg PO TID PRN #25 tablet 03/19/18 11/10/18 Unknown Rx Aspirin [Aspirin TAB] 325 mg PO QDAY #30 tablet 03/19/18 11/10/18 11/10/18 Rx AtorvaSTATin [Lipitor] 80 mg PO QHS #30 tablet 03/19/18 11/10/18 Unknown Rx dilTIAZem CD [Cardizem CD] 120 mg PO QDAY #30 capsule 03/19/18 11/10/18 11/10/18 Rx Metoprolol Succinate [Toprol Xl] 50 mg PO BID 11/10/18 11/10/18 11/10/18 History Venlafaxine [Effexor 37.5mg tab] 37.5 mg PO QDAY 11/10/18 11/10/18 11/10/18 History Active Meds: Active Medications Alprazolam (Xanax) 0.25 mg PO TID PRN PRN Reason: Anxiety Aspirin (Aspirin) 325 mg PO QDAY [facility] Atorvastatin Calcium (Lipitor) 80 mg PO QHS [facility]RIANNA Diltiazem HCl (Cardizem Cd) 120 mg PO DAILY [facility] Metoprolol Tartrate (Lopressor) 50 mg PO BID [facility]NA Pantoprazole Sodium (Protonix) 40 mg PO QDAY [facility] Review of Systems Constitutional: weakness, lethargy, no weight loss, no weight gain, no anorexia Ears, nose, mouth and throat: no ear discharge, no nasal discharge, no dysphagia, no hoarseness Cardiovascular: chest pain, lightheadedness, no orthopnea, no palpitations Respiratory: no cough with sputum, no shortness of breath Gastrointestinal: nausea, vomiting, no abdominal pain, no hematochezia Genitourinary Female: no flank pain, no menorrhagia, no dysuria Musculoskeletal: no myalgias, no arthritis Integumentary: no rash, no lesions Psychiatric: no anxiety, no depression Endocrine: no cold intolerance, no heat intolerance, no polydipsia, no polyuria Hematologic/Lymphatic: no easy bruising, no easy bleeding Allergic/Immunologic: no urticaria, no allergic rhinitis Exam - Constitutional Vitals: Temp Pulse Resp BP Pulse Ox 97.6 F 80 19 169/88 96 11/10/18 08:21 11/10/18 09:45 11/10/18 09:45 11/10/18 09:45 11/10/18 09:45 General appearance: Absent: no acute distress, well-nourished - EENT Eyes: Absent: PERRL, EOM intact - Neck Neck: Absent: supple, normal ROM - Respiratory Respiratory: bilateral: diminished, negative: rales, rhonchi, wheezing - Cardiovascular Rhythm: regular Heart Sounds: Present: S1 & S2 - Extremities Extremities: no ischemia, No edema - Abdominal General gastrointestinal: Present: soft, non-tender, non-distended, normal bowel sounds - Integumentary Integumentary: Present: clear, warm - Musculoskeletal Musculoskeletal: strength equal bilaterally, generalized weakness - Psychiatric Psychiatric: appropriate mood/affect, cooperative - Neurologic Neurologic: moves all extremities Results - Labs CBC & Chem 7: 11/10/18 08:03 11/10/18 08:03 Labs: Abnormal lab results 11/10/18 11/10/18 Range/Units 08:03 08:03 MCHC 36 H (30-34) % RDW 12.9 L (13.2-15.2) % Creatinine 0.6 L (0.7-1.2) mg/dL Glucose 131 H (65-100) mg/dL Assessment and Plan --Atypical chest pain; improved at the time of my evaluation Serial cardiac enzymes, serial EKG, echo for LV function and ejection fraction Cardiology evaluation, possible stress versus heart catheterization if needed Resume all home medications --History of paroxysmal V. tach; Chin has Loop recorder in place since 2017 Closely monitor --Nonobstructive coronary artery disease; continue current cardiac medications --Hypertension; moderate control, resume home antihypertensives and when necessary medications --Dyslipidemia; resume home statins --History of depression/anxiety/posttraumatic stress disorder continue current psych medications Consider psych evaluation if needed --Morbid obesity; BMI 37.2 Patient strongly advise diet modification and exercise as tolerated and weight reduction when medically stable Patient verbalized understanding --DVT prophylaxis; With Lovenox Full CODE STATUS Closely monitor the patient and adjust management as needed Follow-up consults and evaluation and recommendations Follow cardiology evaluation and recommendations Plan of care is reviewed with the patient is nurse and case management Time spent for this admission is 45 minutes
[2018-11-10] MEDS ORDERED: APRESOLINE IV PRN (11:43)
[2018-11-10] MEDS ORDERED: NITROSTAT SL PRN (11:46)
[2018-11-10] MEDS ORDERED: TYLENOL ONE (11:46)
[2018-11-10] MEDS ORDERED: TYLENOL PO ONE (11:51)
[2018-11-10 12:28] LABS: Creatine Kinase MB 2.5 ng/mL (0.0-4.0)
--- NOTE | 2018-11-10 12:55 | Consultation ---
History of Present Illness Consult date: 11/10/18 Requesting physician: ORI TAN Consult reason: chest pain History of present illness: The pt is a 48 YO female with a past medical history significant for loop recorder in situ (placed 12/2017), paroxysmal VT, nonobstructive CAD, POTS, HTN, GERD, OA, migraines, anxiety, adrenal gland thickening with pheocyromocytoma ruled out per pt report. She is followed by Dr. Cordoba at [place]. She works for [employer] at [employer]. She received an ICD implantation in 2013 and claims that she subsequently received multiple inappropriate shocks recurrently which led to depression, anxiety, and post traumatic stress. Eventually, she requested explantation of the device which was performed in November 2015. She states that she was seen in dysautonomia clinic in [place] and was told 30-40% of her symptoms could be related to POTS. She was recently prescribed Effexor for her POTS and she took the first dose this morning at 4AM. She presented with c/o chest pain, palpitations, diaphoresis, nausea, tingling and dizziness since around 10AM. Her symptoms are currently resolved. She believes she could be experiencing a reaction to Effexor. LHC done 03/2018 showed nonobstructive CAD, EF 55-60%. Stress test done 10/11/2017 showed no evidence of ischemia or prior infarct, normal lv fxn, brief episode of SVT post-stress (self limited and resolved with vagal maneuvers). Echo done 10/10/2017 showed EF 50-55%, no significant valvular disease. Past History Past Medical History: other (as per HPI) Medications and Allergies Allergies Allergy/AdvReac Type Severity Reaction Status Date / Time doxycycline AdvReac ulcers Verified 03/16/18 19:20 esophagus tetracycline [Tetracycline] AdvReac ulcers Verified 03/16/18 19:20 esophagus Home Medications Medication Instructions Recorded Confirmed Last Taken Type ALPRAZolam [Xanax TAB] 0.25 mg PO TID PRN #25 tablet 03/19/18 11/10/18 Unknown Rx Aspirin [Aspirin TAB] 325 mg PO QDAY #30 tablet 03/19/18 11/10/18 11/10/18 Rx AtorvaSTATin [Lipitor] 80 mg PO QHS #30 tablet 03/19/18 11/10/18 Unknown Rx dilTIAZem CD [Cardizem CD] 120 mg PO QDAY #30 capsule 03/19/18 11/10/18 11/10/18 Rx Metoprolol Succinate [Toprol Xl] 50 mg PO BID 11/10/18 11/10/18 11/10/18 History Venlafaxine [Effexor 37.5mg tab] 37.5 mg PO QDAY 11/10/18 11/10/18 11/10/18 History Active Meds: Active Medications Alprazolam (Xanax) 0.25 mg PO TID PRN PRN Reason: Anxiety Aspirin (Aspirin) 325 mg PO QDAY [facility] Atorvastatin Calcium (Lipitor) 80 mg PO QHS [facility]NA Diltiazem HCl (Cardizem Cd) 120 mg PO DAILY [facility] Hydralazine HCl (Apresoline) 20 mg IV Q4H PRN PRN Reason: Hypertension Lisinopril (Zestril) 10 mg PO QDAY [facility] Metoprolol Tartrate (Lopressor) 50 mg PO BID [facility] Nitroglycerin (Nitrostat) 0.4 mg SL .Q5MIN PRN PRN Reason: Chest Pain Pantoprazole Sodium (Protonix) 40 mg PO QDAY [facility] Venlafaxine HCl (Effexor) 37.5 mg PO QDAY [facility] Review of Systems Constitutional: weakness, no fever, no chills Ears, nose, mouth and throat: no ear pain, no nose pain, no sinus pressure, no sinus pain Cardiovascular: chest pain, palpitations, lightheadedness, high blood pressure, no orthopnea, no rapid/irregular heart beat, no edema, no syncope, no shortness of breath, no dyspnea on exertion, no paroxysmal nocturnal dyspnea, no leg edema, no decreased exercise tolerance Respiratory: no cough, no shortness of breath, no dyspnea on exertion, no congestion, no wheezing, no pain on inspiration Gastrointestinal: nausea, no abdominal pain, no vomiting, no diarrhea, no co nstipation Genitourinary Female: no pelvic pain, no flank pain, no dysuria, no urinary frequency, no urgency Musculoskeletal: other (generalized tingling), no neck stiffness, no neck pain, no shooting arm pain, no arm numbness/tingling, no low back pain, no shooting leg pain Integumentary: no rash, no pruritis, no redness, no sores, no wounds Neurological: weakness, tingling, no head injury, no paralysis, no numbness, no seizures, no syncope Psychiatric: anxiety Endocrine: no cold intolerance, no heat intolerance Hematologic/Lymphatic: no easy bruising, no easy bleeding Allergic/Immunologic: no urticaria, no wheezing Physical Examination Vital Signs Pulse Resp 80 19 11/10/18 08:14 11/10/18 08:14 General appearance: no acute distress HEENT: Positive: PERRL, Normocephaly, Mucus Membranes Moist Neck: Positive: neck supple, trachea midline Cardiac: Positive: Reg Rate and Rhythm, S1/S2 Lungs: Positive: clear to auscultation Neuro: Positive: Grossly Intact Abdomen: Positive: Soft. Negative: Tender Skin: Negative: Rash Musculoskeletal: No Pain Extremities: Absent: edema Results 11/10/18 08:03 11/10/18 08:03 Cardiac Enzymes 11/10/18 Range/Units 11:56 CK-MB (CK-2) 2.5 (0.0-4.0) ng/mL CBC 11/10/18 Range/Units 08:03 WBC 5.2 (4.5-11.0) K/mm3 RBC 4.61 (3.65-5.03) M/mm3 Hgb 13.7 (10.1-14.3) gm/dl Hct 38.4 (30.3-42.9) % Plt Count 212 (140-440) K/mm3 Lymph # 1.7 (1.2-5.4) K/mm3 [place] # 0.2 (0.0-0.8) K/mm3 Eos # 0.1 (0.0-0.4) K/mm3 Baso # 0.0 (0.0-0.1) K/mm3 Comprehensive Metabolic Panel 11/10/18 Range/Units 08:03 Sodium 140 (137-145) mmol/L Potassium 4.4 (3.6-5.0) mmol/L Chloride 102.6 (98-107) mmol/L Carbon Dioxide 25 (22-30) mmol/L BUN 14 (7-17) mg/dL Creatinine 0.6 L (0.7-1.2) mg/dL Glucose 131 H (65-100) mg/dL Calcium 9.2 (8.4-10.2) mg/dL - Imaging and Cardiology Echo: report reviewed (10/10/2017 showed EF 50-55%, no significant valvular disease. ) Cardiac cath: report reviewed (03/2018 showed nonobstructive CAD, EF 55-60%. ) EKG: report reviewed, image reviewed EKG interpretations - Telemetry EKG Rhythm: Sinus Rhythm - EKG Sinus rhythms and dysrhythmias: sinus rhythm Assessment and Plan Assessment: ? allergic reaction to new medication - Effexor Chest pain, atypical - currently resolved; recurrent; ECG with NAF; troponin negative for AMI x 3 sets H/o paroxysmal VT - ICD implantation 2013 with explantation 11/2015 per pt's request Loop recorder in situ - placed 01/2018 Nonobstructive CAD - S/p LHC 03/2018 which showed nonobstructive CAD, normal LVEF. HTN GERD H/o adrenal land thickening with pheocyromocytoma ruled out per pt report Morbid obesity H/o depression, anxiety, and posttraumatic stress r/t inappropriate AICD shocks per pt report Plan: Currently stable cardiac status. Pt reports current resolution of her symptoms. Cont observation overnight with likely d/c home in AM. Resume home cardiac regimen. The patient has been seen in conjunction with Dr. Loaiza who agrees with the assessment and plan of care.
[2018-11-10 14:02] LABS: Creatine Kinase MB 2.3 ng/mL (0.0-4.0)
[2018-11-10] MEDS ORDERED: AMBIEN PO PRN (16:07)
[2018-11-10] MEDS ORDERED: MORPHINE IV PRN (16:07)
[2018-11-10] MEDS: COLACE PO SCH (21:28)
[2018-11-10] MEDS: PEPCID PO SCH (21:31)
[2018-11-10] MEDS: LOPRESSOR PO SCH (21:31)
[2018-11-10] MEDS ORDERED: COLACE PO SCH (22:00)
[2018-11-11 07:30] LABS: BUN/Creatinine Ratio 26; Blood Urea Nitrogen 13 mg/dL (7-17); Calcium 8.9 mg/dL (8.4-10.2); Hemolysis Index 76; LDL Cholesterol,Direct 135 mg/dL (50-130)
--- NOTE | 2018-11-11 08:34 | Progress Note ---
Assessment and Plan Assessment and plan: --Atypical chest pain; improved Serial cardiac enzymes negative, serial EKG, echo for LV function and ejection fraction Cardiology evaluation, possible stress versus heart catheterization if needed Resume all home medications --Dizziness; fall precautions, check orthostatics, supportive care --History of paroxysmal V. tach; Chin has Loop recorder in place since 2017 Closely monitor --Nonobstructive coronary artery disease; continue current cardiac medications --Hypertension; moderate control, resume home antihypertensives and when necessary medications --Dyslipidemia; resume home statins --History of depression/anxiety/posttraumatic stress disorder continue current psych medications Consider psych evaluation if needed --Morbid obesity; BMI 37.2 Patient strongly advise diet modification and exercise as tolerated and weight reduction when medically stable Patient verbalized understanding --DVT prophylaxis;With Lovenox Closely monitor the patient and adjust management as needed History Interval history: Since seen and examined medical records reviewed Patient continues to feel dizzy Denies chest pain or shortness of breath Alert awake oriented 3 not in acute distress Vital signs reviewed Hospitalist Physical - Constitutional Vitals: Temp Pulse Resp BP Pulse Ox 97.3 F L 88 18 140/83 94 11/11/18 08:01 11/10/18 21:14 11/11/18 08:01 11/11/18 08:01 11/10/18 20:10 General appearance: Present: no acute distress, well-nourished, obese - EENT Eyes: Present: PERRL, EOM intact - Neck Neck: Present: supple, normal ROM - Respiratory Respiratory effort: normal Respiratory: bilateral: diminished, negative: rales, rhonchi, wheezing - Cardiovascular Rhythm: regular Heart Sounds: Present: S1 & S2 - Extremities Extremities: no ischemia, No edema - Abdominal General gastrointestinal: soft, non-tender, non-distended, normal bowel sounds - Integumentary Integumentary: Present: clear, warm - Psychiatric Psychiatric: appropriate mood/affect, cooperative - Neurologic Neurologic: CNII-XII intact, moves all extremities Results - Labs CBC & Chem 7: 11/11/18 06:23 11/11/18 06:23 Labs: Laboratory Last Values WBC 5.2 K/mm3 (4.5-11.0) 11/10/18 08:03 RBC 4.61 M/mm3 (3.65-5.03) 11/10/18 08:03 Hgb 13.7 gm/dl (10.1-14.3) 11/10/18 08:03 Hct 38.4 % (30.3-42.9) 11/10/18 08:03 MCV 83 fl (79-97) 11/10/18 08:03 MCH 30 pg (28-32) 11/10/18 08:03 MCHC 36 % (30-34) H 11/10/18 08:03 RDW 12.9 % (13.2-15.2) L 11/10/18 08:03 Plt Count 212 K/mm3 (140-440) 11/10/18 08:03 Lymph % (Auto) 33.2 % (13.4-35.0) 11/10/18 08:03 Sharkey % (Auto) 4.7 % (0.0-7.3) 11/10/18 08:03 Eos % (Auto) 1.4 % (0.0-4.3) 11/10/18 08:03 Baso % (Auto) 0.9 % (0.0-1.8) 11/10/18 08:03 Lymph # 1.7 K/mm3 (1.2-5.4) 11/10/18 08:03 Sharkey # 0.2 K/mm3 (0.0-0.8) 11/10/18 08:03 Eos # 0.1 K/mm3 (0.0-0.4) 11/10/18 08:03 Baso # 0.0 K/mm3 (0.0-0.1) 11/10/18 08:03 Seg Neutrophils % 59.8 % (40.0-70.0) 11/10/18 08:03 Seg Neutrophils # 3.1 K/mm3 (1.8-7.7) 11/10/18 08:03 Sodium 140 mmol/L (137-145) 11/11/18 06:23 Potassium 4.4 mmol/L (3.6-5.0) 11/11/18 06:23 Chloride 103.6 mmol/L (98-107) 11/11/18 06:23 Carbon Dioxide 25 mmol/L (22-30) 11/11/18 06:23 Anion Gap 16 mmol/L 11/11/18 06:23 BUN 13 mg/dL (7-17) 11/11/18 06:23 Creatinine 0.5 mg/dL (0.7-1.2) L 11/11/18 06:23 Estimated GFR > 60 ml/min 11/11/18 06:23 BUN/Creatinine Ratio 26 % 11/11/18 06:23 Glucose 89 mg/dL (65-100) 11/11/18 06:23 Calcium 8.9 mg/dL (8.4-10.2) 11/11/18 06:23 Total Creatine Kinase 90 units/L (30-135) 11/10/18 21:33 CK-MB (CK-2) 2.0 ng/mL (0.0-4.0) 11/10/18 21:33 CK-MB (CK-2) Rel Index 2.2 (0-4) 11/10/18 21:33 Troponin T < 0.010 ng/mL (0.00-0.029) 11/10/18 13:17 Triglycerides 100 mg/dL (2-149) 11/11/18 06:23 Cholesterol 167 mg/dL (50-199) 11/11/18 06:23 LDL Cholesterol Direct 135 mg/dL (50-130) H 11/11/18 06:23 HCG, Qual Negative (Negative) 11/10/18 08:03
[2018-11-11 09:12] LABS: Basophils % (Auto) 0.7 % (0.0-1.8); Chol/HDL Ratio 3.63 %; Eosinophils # (Auto) 0.1 K/mm3 (0.0-0.4); Eosinophils % (Auto) 1.5 % (0.0-4.3); HDL Cholesterol 46 mg/dL (40-59); Hematocrit 39.4 % (30.3-42.9); Hemoglobin 13.3 gm/dl (10.1-14.3); Lymphocytes # (Auto) 1.5 K/mm3 (1.2-5.4); Mean Corpuscular HGB Conc 34 % (30-34); Mean Corpuscular Volume 85 fl (79-97); Mean Platelet Volume 8.3 fl (6-12); Monocytes # (Auto) 0.3 K/mm3 (0.0-0.8); Monocytes % (Auto) 6.4 % (0.0-7.3); Platelet Count 219 K/mm3 (140-440); Red Blood Count 4.65 M/mm3 (3.65-5.03)
[2018-11-11] MEDS ORDERED: PROTONIX PO SCH (10:00)
[2018-11-11] MEDS ORDERED: CARDIZEM CD PO SCH (10:00)
[2018-11-11] MEDS ORDERED: ZESTRIL PO SCH (10:00)
[2018-11-11] MEDS ORDERED: ASPIRIN PO SCH (10:00)
[2018-11-11] MEDS ORDERED: EFFEXOR PO SCH (10:00)
--- NOTE | 2018-11-11 10:50 | Progress Note ---
Assessment and Plan Assessment: ? allergic reaction to new medication - Effexor Chest pain, atypical - currently resolved; recurrent; ECG with NAF; troponin negative for AMI x 3 sets H/o paroxysmal VT - ICD implantation 2013 with explantation 11/2015 per pt's request Loop recorder in situ - placed 01/2018 Nonobstructive CAD - S/p C 03/2018 which showed nonobstructive CAD, normal LVEF. HTN GERD H/o adrenal land thickening with pheocyromocytoma ruled out per pt report Morbid obesity H/o depression, anxiety, and posttraumatic stress r/t inappropriate AICD shocks per pt report Plan: Echo reviewed - EF 55-60%, impaired relaxation. Currently stable cardiac status. Obtain orthostatics. Pending orthostatics are unremarkable, pt may discharge home from cardiology standpoint on home cardiac regimen. Recommend pt follow up with primary field insurance sales manager at [facility] within 1-2 weeks of hospital discharge. The patient has been seen in conjunction with Dr. Loaiza who agrees with the assessment and plan of care. Subjective Date of service: 11/11/18 Principal diagnosis: ? allergic rxn Interval history: pt resting in bed, states she is still experiencing generalized tingling and intermittent palpitations. tele reviewed - currently in SR with bouts of ST HR 130s overnight. Objective Last Vital Signs Temp 97.3 F L 11/11/18 08:01 Pulse 73 11/11/18 08:37 Resp 18 11/11/18 08:01 BP 140/83 11/11/18 08:01 Pulse Ox 97 11/11/18 07:59 - Physical Examination General: No Apparent Distress HEENT: Positive: PERRL, Normocephaly, Mucus Membranes Moist Neck: Positive: neck supple, trachea midline Cardiac: Positive: Regular Rhythm, S1/S2 Lungs: Positive: clear to auscultation Neuro: Positive: Grossly Intact Abdomen: Positive: Soft. Negative: Tender Skin: Negative: Rash Musculoskeletal: No Pain Extremities: Absent: edema - Labs and Meds Cardiac Enzymes 11/10/18 11/10/18 11/10/18 Range/Units 11:56 13:17 21:33 CK-MB (CK-2) 2.5 2.3 2.0 (0.0-4.0) ng/mL Lipids 11/11/18 Range/Units 06:23 Triglycerides 100 (2-149) mg/dL Cholesterol 167 (50-199) mg/dL HDL Cholesterol 46 (40-59) mg/dL Cholesterol/HDL Ratio 3.63 % CBC 11/11/18 Range/Units 06:23 WBC 4.5 (4.5-11.0) K/mm3 RBC 4.65 (3.65-5.03) M/mm3 Hgb 13.3 (10.1-14.3) gm/dl Hct 39.4 (30.3-42.9) % Plt Count 219 (140-440) K/mm3 Lymph # 1.5 (1.2-5.4) K/mm3 Hardin # 0.3 (0.0-0.8) K/mm3 Eos # 0.1 (0.0-0.4) K/mm3 Baso # 0.0 (0.0-0.1) K/mm3 Comprehensive Metabolic Panel 11/11/18 Range/Units 06:23 Sodium 140 (137-145) mmol/L Potassium 4.4 (3.6-5.0) mmol/L Chloride 103.6 (98-107) mmol/L Carbon Dioxide 25 (22-30) mmol/L BUN 13 (7-17) mg/dL Creatinine 0.5 L (0.7-1.2) mg/dL Glucose 89 (65-100) mg/dL Calcium 8.9 (8.4-10.2) mg/dL - Imaging and Cardiology EKG: report reviewed, image reviewed Echo: report reviewed (10/10/2017 showed EF 50-55%, no significant valvular disease. ) Cardiac cath: report reviewed (03/2018 showed nonobstructive CAD, EF 55-60%. ) - EKG Sinus rhythms and dysrhythmias: sinus rhythm
[2018-11-11] MEDS: LOPRESSOR PO SCH (10:53)
[2018-11-11 11:33] VITALS: BP 164/109
[2018-11-11] MEDS: COLACE PO SCH (12:59)
[2018-11-11] MEDS: PEPCID PO SCH (12:59)
--- NOTE | 2018-11-11 13:55 | Discharge Summary ---
Providers - Providers Date of Admission: 11/10/18 10:01 Date of discharge: 11/11/18 Attending physician: ORI TAN 11/10/18 11:40 Consult to Physician [CONS] Routine Comment: dr james bostno saw pt in er Consulting Provider: DEVORAH BOSTON Physician Instructions: Reason For Exam: recurrent chest pains , Primary care physician: [facility], Hospitalization Reason for admission: chest pain and dizziness Condition: Stable Pertinent studies: CT head without contrast; within normal limits Echocardiogram; ejection fraction 55-60% Abnormal left ventricle diastolic filling is observed consistent with impaired relaxation Hospital course: 48-year-old obese female patient with significant past medical history of coronary artery disease paroxysmal VT ,POTs disease, hypertension , osteoarthritis, anxiety disorder was admitted through emergency room with dizziness nausea vomiting and chest pain Patient was admitted to the hospital symptomatically managed evaluated by cardiology .Medications optimized Patient has history of starting the new medication Effexor and reports that her symptoms started after using this medication, Effexor was discontinued Cardiology advised to follow with her primary signal worker helper at [facility] for further evaluation and management Today patient is comfortable no new complaints vital signs stable Physical examination is unremarkable, ambulatory tolerating oral nutrition Cleared by cardiology for discharge and follow up with primary care physician and specialist at [facility] Patient was given 1 day work excuse and advised to check with primary care physician for further recommendations Patient is hemodynamically and clinically stable at discharge Discharge diagnosis: --Atypical chest pain; improved Serial cardiac enzymes negative, serial EKG, no acute changes Echocardiogram done findings reviewed --Dizziness; fall precautions, check orthostatics, supportive care --History of paroxysmal V. tach; Chin has Loop recorder in place since 2017 --Nonobstructive coronary artery disease; continue current cardiac medications --Hypertension; moderate control, resume home antihypertensives and when necessary medications --Dyslipidemia; resume home statins --History of depression/anxiety/posttraumatic stress disorder on psych medications, follow up with psych upon discharge --Morbid obesity; BMI 37.2 advise diet modification and exercise as tolerated and weight reduction when medically stable Cleared by cardiology for discharge follow-up with private signal worker helper, psychiatric psychiatrist and esthetics instructor per schedule Closely monitor the patient and adjust management as needed Disposition: - TO HOME OR SELFCARE Time spent for discharge: 31 MIN Core Measure Documentation - Palliative Care Palliative Care/ Comfort Measures: Not Applicable - Core Measures Any of the following diagnoses?: none Exam - Constitutional Vitals: Temp Pulse Resp BP Pulse Ox 97.5 F L 85 18 164/109 97 11/11/18 11:31 11/11/18 11:31 11/11/18 11:31 11/11/18 11:31 11/11/18 11:31 General appearance: Present: no acute distress, well-nourished - EENT Eyes: Present: PERRL, EOM intact - Neck Neck: Present: supple, normal ROM - Respiratory Respiratory effort: normal Respiratory: bilateral: diminished, negative: rales, rhonchi, wheezing - Cardiovascular Rhythm: regular Heart Sounds: Present: S1 & S2 - Extremities Extremities: no ischemia, No edema - Abdominal General gastrointestinal: Present: soft, non-tender, normal bowel sounds - Integumentary Integumentary: Present: clear, warm - Musculoskeletal Musculoskeletal: strength equal bilaterally - Psychiatric Psychiatric: appropriate mood/affect, cooperative - Neurologic Neurologic: CNII-XII intact, moves all extremities Plan Activity: advance as tolerated, fall precautions Diet: other (Cardiac Diet) Additional Instructions: Advised to follow up with your signal worker helper at [facility] in 1-2 weeks. or as needed. Follow-up with Dr. Cordoba within 1 week or as needed. Exercise as tolerated and weight reduction when medically stable. Advised 1 day work excuse on 11/12/2018 and check with your primary care physician as needed Follow up with: RICH BARNES MD [Primary Care Provider] - 7 Days Forms: Work/School Release Form Prescriptions: Lisinopril [Zestril TAB] 10 mg PO QDAY #30 tablet
== END 2018-11-11 15:20 | disposition home or self-care (01) | DRG 303 ==
LOC: ED 07:54 → 4A 10:01
PROVIDERS: ADMIT Internal Medicine; ATTEND Internal Medicine
DX: I25.10 Atherosclerotic heart disease of native coronary artery without angina pectoris (principal); R42 Dizziness and giddiness; I10 Essential (primary) hypertension; E66.01 Morbid (severe) obesity due to excess calories; Z68.37 Body mass index [BMI] 37.0-37.9, adult; F32.9 Major depressive disorder, single episode, unspecified; F43.10 Post-traumatic stress disorder, unspecified; F41.9 Anxiety disorder, unspecified; K21.9 Gastro-esophageal reflux disease without esophagitis; M19.90 Unspecified osteoarthritis, unspecified site; G43.909 Migraine, unspecified, not intractable, without status migrainosus; Z88.1 Allergy status to other antibiotic agents; T50.905A Adverse effect of unspecified drugs, medicaments and biological substances, initial encounter; Y92.89 Other specified places as the place of occurrence of the external cause; Z90.710 Acquired absence of both cervix and uterus; Z82.49 Family history of ischemic heart disease and other diseases of the circulatory system
CPT/HCPCS: 36415; 70450; 80048; 80061; 82550; 82553; 84484; 84703; 85025; 93005; 93010; 93306; G0378; A9270-GY; J0360

== ENCOUNTER 2019-02-15 09:28 | Observation (INO) | payer BC ==
--- NOTE | 2019-02-15 10:35 | Emergency Department Report ---
HPI - General Chief Complaint: Arrhythmia/Palpitations Time Seen by Provider: 02/15/19 10:08 - HPI HPI: 48-year-old female presents to the emergency department with complaint of some palpitations, chest pain and shortness of breath. The patient has a history of palpitations, SVT and tachyarrhythmia. She has an internal monitor and when she feels palpitations to transmits the information over to [place]. She was then notified that she had a 35 beat run of V. tach. She says that she was walking on the [place] when she started having the palpitations and symptoms and felt like she was going to pass out. Patient has a past medical history of arthritis, hypertension, anxiety, coronary artery disease with some partial blockages but no stents. The patient used to have a defibrillator in place but was removed after she was getting some inappropriate defibrillation secondary to SVT. She has also had some failed ablations in the past. The patient follows with Dr. Cordoba, EP career law clerk, at [place]. She took 0.25 of Xanax this morning for some anxiety. No recent travel or sick contacts at home. ED Past Medical Hx - Past Medical History Hx Hypertension: Yes Hx Congestive Heart Failure: No Hx Diabetes: No Hx GERD: Yes Hx Arthritis: Yes Hx Headaches / Migraines: Yes Hx Kidney Stones: Yes Hx Asthma: No Hx COPD: No Hx HIV: No Additional medical history: CAD (3 BLOCKAGES, NO STENTS). SVT - Surgical History Hx Pacemaker: Yes (Defribrillator removed) Hx Internal Defibrillator: (had defibrillator removed) Hx Cholecystectomy: Yes Additional Surgical History: hysterectomy 2013 - Social History Smoking Status: Never Smoker Substance Use Type: None - Medications Home Medications: Home Medications Medication Instructions Recorded Confirmed Last Taken Type ALPRAZolam [Xanax TAB] 0.25 mg PO TID PRN #25 tablet 03/19/18 02/15/19 Unknown Rx Aspirin 325 mg PO QDAY #30 tablet 03/19/18 02/15/19 11/10/18 Rx dilTIAZem CD [Cardizem CD] 120 mg PO QDAY #30 capsule 03/19/18 02/15/19 11/10/18 Rx Metoprolol Succinate [Toprol Xl] 50 mg PO BID 11/10/18 02/15/19 11/10/18 History dilTIAZem CD [Cardizem CD] 120 mg PO DAILY capsule 11/11/18 02/15/19 Unknown Rx ED Review of Systems ROS: Stated complaint: CHEST PAIN/ANXIETY Other details as noted in HPI Comment: All other systems reviewed and negative Constitutional: denies: chills, fever Eyes: denies: eye pain, vision change ENT: denies: ear pain, throat pain Respiratory: shortness of breath. denies: cough Cardiovascular: chest pain, palpitations Gastrointestinal: denies: abdominal pain, vomiting Genitourinary: denies: dysuria, discharge Musculoskeletal: denies: back pain, arthralgia Skin: denies: rash, lesions Neurological: denies: headache, weakness Psychiatric: anxiety Physical Exam - Physical Exam Vital Signs: Vital Signs 02/15/19 02/15/19 09:35 09:46 Temperature 97.5 F L 98.2 F Pulse Rate 76 88 Respiratory 16 16 Rate Blood Pressure 167/86 Blood Pressure 169/87 [Left] O2 Sat by Pulse 97 96 Oximetry Physical Exam: GENERAL: The patient is well-developed well-nourished. HENT: Normocephalic. Atraumatic. Patient has moist mucous membranes. EYES: Extraocular motions are intact. NECK: Supple. Trachea is midline. CHEST/LUNGS: Clear to auscultation. There is no respiratory distress noted. HEART/CARDIOVASCULAR: Regular. There is no tachycardia. There is no murmur. ABDOMEN: Abdomen is soft, nontender. Patient has normal bowel sounds. There is no abdominal distention. SKIN: Skin is warm and dry. NEURO: The patient is awake, alert, and oriented. The patient is cooperative. The patient has no focal neurologic deficits. The patient has normal speech. MUSCULOSKELETAL: There is no tenderness or deformity. There is no evidence of acute injury. ED Course Vital Signs 02/15/19 02/15/19 09:35 09:46 Temperature 97.5 F L 98.2 F Pulse Rate 76 88 Respiratory 16 16 Rate Blood Pressure 167/86 Blood Pressure 169/87 [Left] O2 Sat by Pulse 97 96 Oximetry ED Medical Decision Making - Lab Data Result diagrams: 02/15/19 10:45 02/15/19 10:45 - EKG Data -: EKG Interpreted by Ks EKG shows normal: sinus rhythm, axis, intervals, QRS complexes, ST-T waves Rate: normal - EKG Data When compared to previous EKG there are: no significant change Interpretation: normal EKG, unchanged when compared t (11/10/18) - Radiology Data Radiology results: image reviewed interpreted by me: Chest x-ray does not show any acute process. There are no pleural effusions, obvious pneumonia and there is no pneumothorax. - Medical Decision Making This patient with a history of nonobstructive coronary artery disease and previous tachyarrhythmias presents with some chest pain, palpitations and shortness of breath. She has a internal monitor that showed that she had a 35 beat run of V. tach today. Workup has been mostly unremarkable thus far. EKG does not show any signs of ST elevation NM, ischemia or dysrhythmia. She has had a negative troponin and negative d-dimer. Chest x-ray does not show any acute processes. [facility] cardiology was contacted and will consult and would like the patient admitted to the hospital as an observational stay to start. Patient was accepted for admission by the hospitalist, Dr. Euceda. - Differential Diagnosis NM, tachyarrhythmia, PE, electrolyte abnormalities Critical Care Time: No Critical care attestation.: If time is entered above; I have spent that time in minutes in the direct care of this critically ill patient, excluding procedure time. ED Disposition Clinical Impression: Palpitations, Ventricular tachycardia seen on quality assurance monitor, History of coronary artery disease Chest pain Qualifiers: Chest pain type: unspecified Qualified Code(s): R07.9 - Chest pain, unspecified Disposition: -09 OP ADMIT IP TO THIS HOSP Is pt being admited?: Yes Condition: Fair Time of Disposition: 15:54
[2019-02-15 11:14] LABS: Basophils # (Auto) 0.1 K/mm3 (0.0-0.1); Basophils % (Auto) 0.8 % (0.0-1.8); Eosinophils # (Auto) 0.1 K/mm3 (0.0-0.4); Eosinophils % (Auto) 0.7 % (0.0-4.3); Hematocrit 40.6 % (30.3-42.9); Lymphocytes # (Auto) 1.3 K/mm3 (1.2-5.4); Lymphocytes % (Auto) 16.2 % (13.4-35.0); Mean Corpuscular HGB Conc 34 % (30-34); Mean Corpuscular Volume 84 fl (79-97); Monocytes # (Auto) 0.4 K/mm3 (0.0-0.8); Monocytes % (Auto) 4.9 % (0.0-7.3); Platelet Count 216 K/mm3 (140-440); Red Blood Count 4.82 M/mm3 (3.65-5.03); Red Cell Distribution Width 13.5 % (13.2-15.2)
--- NOTE | 2019-02-15 11:24 | XRay Report ---
AP CHEST: HISTORY: Dysrhythmia Heart size appears borderline which is new since 11/24/17. Normal pulmonary vascularity. The lungs are clear. The bony structures are grossly intact. IMPRESSION: Borderline heart size. Lungs clear.
[2019-02-15 11:34] LABS: Alanine Aminotransferase 20 units/L (7-56); Albumin 4.2 g/dL (3.9-5); BUN/Creatinine Ratio 23; Blood Urea Nitrogen 14 mg/dL (7-17); Calcium 9.3 mg/dL (8.4-10.2); Hemolysis Index 8
--- NOTE | 2019-02-15 15:10 | Consultation ---
History of Present Illness Consult date: 02/15/19 Requesting physician: MICHAEL BLANCO Consult reason: tachycardia History of present illness: The pt is a 48 YO female with a past medical history significant for loop recorder in situ (placed 12/2017), paroxysmal VT, nonobstructive CAD, POTS, HTN, GERD, OA, migraines, anxiety, adrenal gland thickening with pheocyromocytoma ruled out per pt report. She is followed by Dr. Singh and Dr. Cordoba at [place]. She works for [employer]. She received an ICD implantation in 2013 and claims that she subsequently received multiple inappropriate shocks recurrently which led to depression, anxiety, and posttraumatic stress. Eventually, she requested explantation of the device which was performed in November 2015. She states that she was seen in dysautonomia clinic in [place] and was told 30-40% of her symptoms could be related to POTS. She presented with c/o palpitations and near syncope this AM. At 7:52AM this morning, pt had an episode of VT which lasted 35 beats. Her episode was captured on her loop recorder. She spoke with her plating equipment tender at [facility] and was advised to report to ED for further eval/management. Per [facility] documentation, pt has been taking Toprol XL and Cardizem CD for HR control. Per Dr. Singh, "My impression is that she has triggered or automatic VT, not scar related, and most likely not lethal, but certainly recurrent and symptomatic despite CCB and BB therapy. I have reocommended that we d/c dilt and add flecainide 50mg bid to see if this helps. She has had cath which was negative. No scar on prior CMR." On evaluation, pt is in NSR with no current complaints. LHC done 03/2018 showed nonobstructive CAD, EF 55-60%. Stress test done 10/11/2017 showed no evidence of ischemia or prior infarct, normal lv fxn, brief episode of SVT post-stress (self limited and resolved with vagal maneuvers). Echo done 10/10/2017 showed EF 50-55%, no significant valvular disease. Past History Past Medical History: other (as per HPI) Medications and Allergies Allergies Allergy/AdvReac Type Severity Reaction Status Date / Time doxycycline AdvReac ulcers Verified 03/16/18 19:20 esophagus tetracycline [Tetracycline] AdvReac ulcers Verified 03/16/18 19:20 esophagus Home Medications Medication Instructions Recorded Confirmed Last Taken Type ALPRAZolam [Xanax TAB] 0.25 mg PO TID PRN #25 tablet 03/19/18 02/15/19 Unknown Rx Aspirin 325 mg PO QDAY #30 tablet 03/19/18 02/15/19 11/10/18 Rx dilTIAZem CD [Cardizem CD] 120 mg PO QDAY #30 capsule 03/19/18 02/15/19 11/10/18 Rx Metoprolol Succinate [Toprol Xl] 50 mg PO BID 11/10/18 02/15/19 11/10/18 History dilTIAZem CD [Cardizem CD] 120 mg PO DAILY capsule 11/11/18 02/15/19 Unknown Rx Review of Systems Constitutional: no weight loss, no weight gain, no fever, no chills, no sweats Ears, nose, mouth and throat: no ear pain, no nose pain, no sinus pressure, no sinus pain Cardiovascular: palpitations, rapid/irregular heart beat, lightheadedness, no chest pain, no orthopnea, no edema, no syncope, no shortness of breath, no dyspnea on exertion, no paroxysmal nocturnal dyspnea, no high blood pressure, no leg edema Respiratory: no cough, no shortness of breath, no dyspnea on exertion, no congestion, no wheezing, no pain on inspiration Gastrointestinal: no abdominal pain, no nausea, no vomiting, no diarrhea, no constipation, no change in bowel habits Genitourinary Female: no pelvic pain, no flank pain, no dysuria, no urinary frequency, no urgency Musculoskeletal: no neck stiffness, no neck pain, no shooting arm pain, no arm numbness/tingling, no low back pain, no shooting leg pain Integumentary: no rash, no pruritis, no redness, no sores, no wounds Neurological: no head injury, no paralysis, no weakness, no parathesias, no numbness, no tingling, no seizures, no syncope Psychiatric: no anxiety Endocrine: no cold intolerance, no heat intolerance Hematologic/Lymphatic: no easy bruising, no easy bleeding Allergic/Immunologic: no urticaria, no wheezing Physical Examination Vital Signs Temp Pulse Resp BP Pulse Ox 97.5 F L 76 16 167/86 97 02/15/19 09:35 02/15/19 09:35 02/15/19 09:35 02/15/19 09:35 02/15/19 09:35 General appearance: no acute distress HEENT: Positive: PERRL, Normocephaly, Mucus Membranes Moist Neck: Positive: neck supple, trachea midline Cardiac: Positive: Reg Rate and Rhythm, S1/S2 Lungs: Positive: clear to auscultation Neuro: Positive: Grossly Intact Abdomen: Positive: Soft. Negative: Tender Skin: Negative: Rash, Wound Musculoskeletal: No Pain Extremities: Absent: edema Results 02/15/19 10:45 02/15/19 10:45 Cardiac Enzymes 02/15/19 Range/Units 10:45 AST 21 (5-40) units/L CBC 02/15/19 Range/Units 10:45 WBC 7.7 (4.5-11.0) K/mm3 RBC 4.82 (3.65-5.03) M/mm3 Hgb 14.0 (10.1-14.3) gm/dl Hct 40.6 (30.3-42.9) % Plt Count 216 (140-440) K/mm3 Lymph # 1.3 (1.2-5.4) K/mm3 [place] # 0.4 (0.0-0.8) K/mm3 Eos # 0.1 (0.0-0.4) K/mm3 Baso # 0.1 (0.0-0.1) K/mm3 Comprehensive Metabolic Panel 02/15/19 Range/Units 10:45 Sodium 142 (137-145) mmol/L Potassium 4.3 (3.6-5.0) mmol/L Chloride 102.4 (98-107) mmol/L Carbon Dioxide 25 (22-30) mmol/L BUN 14 (7-17) mg/dL Creatinine 0.6 L (0.7-1.2) mg/dL Glucose 95 (65-100) mg/dL Calcium 9.3 (8.4-10.2) mg/dL AST 21 (5-40) units/L ALT 20 (7-56) units/L Alkaline Phosphatase 61 (35-129) units/L Total Protein 7.7 (6.3-8.2) g/dL Albumin 4.2 (3.9-5) g/dL - Imaging and Cardiology Echo: report reviewed ( 10/10/2017 showed EF 50-55%, no significant valvular disease. ) Cardiac cath: report reviewed (03/2018 showed nonobstructive CAD, EF 55-60%. ) EKG: report reviewed, image reviewed EKG interpretations - Telemetry EKG Rhythm: Sinus Rhythm - EKG Sinus rhythms and dysrhythmias: sinus rhythm Assessment and Plan Initiate flecainide 50mg bid and resume home Toprol. D/c home cardizem. F/u serial ECGs and monitor on telemetry overnight. Likely d/c home in AM if no acute events occur overnight. The patient has been seen in conjunction with Dr. Arguelles who agrees with the assessment and plan of care. - Patient Problems (1) Ventricular tachycardia (paroxysmal) Current Visit: Yes Status: Chronic (2) History of loop recorder Current Visit: Yes Status: Chronic (3) S/P implantation of automatic cardioverter/defibrillator (AICD) Current Visit: Yes Status: Chronic Plan to address problem: explanted 11/2015 (4) Nonobstructive atherosclerosis of coronary artery Current Visit: Yes Status: Chronic (5) POTS (postural orthostatic tachycardia syndrome) Current Visit: Yes Status: Chronic (6) Hypertension Current Visit: Yes Status: Chronic Qualifiers: Hypertension type: essential hypertension Qualified Code(s): I10 - Essential (primary) hypertension (7) GERD (gastroesophageal reflux disease) Current Visit: Yes Status: Chronic (8) Anxiety Current Visit: Yes Status: Chronic (9) Obesity Current Visit: Yes Status: Chronic
[2019-02-15] MEDS ORDERED: ZOFRAN IV PRN (21:52)
[2019-02-15] MEDS ORDERED: XANAX PO PRN (21:52)
[2019-02-15] MEDS ORDERED: DILAUDID IV PRN (21:52)
[2019-02-15] MEDS ORDERED: TYLENOL PO PRN (21:52)
[2019-02-15] MEDS ORDERED: PERCOCET 5/325 PO PRN (21:52)
[2019-02-15] MEDS ORDERED: SODIUM CHLORIDE FLUSH SYRINGE 10 ML IV PRN (21:52)
[2019-02-15] MEDS ORDERED: NACL 0.9% 1000 ML 1,000 ML IV SCH (22:00)
[2019-02-15] MEDS ORDERED: LOVENOX SUB-Q SCH (22:00)
[2019-02-15] MEDS ORDERED: SODIUM CHLORIDE FLUSH SYRINGE 10 ML IV SCH (22:00)
[2019-02-15] MEDS: PEPCID PO SCH (23:38)
[2019-02-15] MEDS: TOPROL XL PO SCH (23:38)
[2019-02-15] MEDS: TAMBOCOR PO SCH (23:41)
[2019-02-16 04:47] LABS: Basophils % (Auto) 0.5 % (0.0-1.8); Eosinophils # (Auto) 0.1 K/mm3 (0.0-0.4); Hemoglobin 13.3 gm/dl (10.1-14.3); Lymphocytes # (Auto) 1.8 K/mm3 (1.2-5.4); Lymphocytes % (Auto) 28.5 % (13.4-35.0); Mean Corpuscular HGB Conc 34 % (30-34); Mean Corpuscular Volume 85 fl (79-97); Monocytes # (Auto) 0.4 K/mm3 (0.0-0.8); Monocytes % (Auto) 6.3 % (0.0-7.3); Platelet Count 192 K/mm3 (140-440); Red Cell Distribution Width 13.5 % (13.2-15.2)
[2019-02-16 05:12] LABS: Alanine Aminotransferase 19 units/L (7-56); Albumin 3.8 g/dL (3.9-5); BUN/Creatinine Ratio 20; Blood Urea Nitrogen 12 mg/dL (7-17); Calcium 9.1 mg/dL (8.4-10.2); Hemolysis Index 13
--- NOTE | 2019-02-16 05:54 | Event Note ---
Date: 02/15/19 See H/p in reports Vent Tachycardia--35 beat run HTN Hx of svt's /Vtach
--- NOTE | 2019-02-16 06:33 | History and Physical Report ---
CHIEF COMPLAINT: Palpitations this a.m. HISTORY OF PRESENT ILLNESS: A 48-year-old female with a history of hypertension, arthritis, kidney stones, and migraines, comes in for palpitations this morning [place] The patient apparently has palpitations off and on and is known to have supraventricular tachycardias and tachyarrhythmias. The patient has an internal loop recorder which transfers information to [facility]. The patient was notified that she had 35-beat run of V-tach. A cardiology consult was requested. Extensive history in the cardiology consult note. The patient was on diltiazem and metoprolol, and the [facility] brick carrier had suggested that the diltiazem be stopped and be started on flecainide. During my examination, the patient did not have any palpitations. Lying comfortably. Slightly anxious. No shortness of breath. No chest pain. PAST MEDICAL HISTORY: Significant for hypertension and tachyarrhythmias, SVT versus V-tach, kidney stones, GERD. PAST SURGICAL HISTORY: Pacemaker and had a defibrillator, which was removed, cholecystectomy in the past and hysterectomy in the past. SOCIAL HISTORY: Does not smoke. No alcohol, no recreational drugs. FAMILY HISTORY: Significant for hypertension. REVIEW OF SYSTEMS: Significant for palpitations and chest pain. Otherwise, review of systems negative. A 14-point review of systems done. PHYSICAL EXAMINATION: GENERAL: Middle-aged female, cooperative during the examination, slightly obese. VITAL SIGNS: Temperature 97.5, pulse is 76, respirations are 16, blood pressure 167/86, sats are 97%. HEENT: Unremarkable. Pupils equal and reactive. NECK: Supple, no lymphadenopathy, no thyromegaly. LUNGS: Clear to auscultation and percussion. Good air entry. CARDIOVASCULAR: S1, S2 heard. No gallop, no murmur, no rub. Apical impulse in the left fifth intercostal space and midclavicular line. ABDOMEN: Soft and benign. No hepatosplenomegaly. No guarding, no rigidity. Hernial orifices are normal. EXTREMITIES: Good pedal pulses. No pedal edema. CENTRAL NERVOUS SYSTEM: Alert and oriented x 4, nonfocal exam. LABORATORY DATA: CBC is normal. Electrolytes are normal. Hemoglobin A1c is 5.2. Albumin is 4.2. EKG shows normal sinus rhythm, normal intervals. No significant change from the previous EKGs. ASSESSMENT AND PLAN: 1. Ventricular tachycardia. The patient has a 35-beat run of ventricular tachycardia. The patient is being admitted for observation. Patient's medications were changed. The patient was on diltiazem and metoprolol, and diltiazem was discontinued. The patient started on flecainide. Cardiology consult requested. 2. Hypertension. Continue metoprolol. 3. Generalized anxiety disorder. Continue Xanax. 4. Gastroesophageal reflux disease. Continue famotidine. 5. Deep venous thrombosis prophylaxis, Lovenox 40 mg subcutaneous daily started. JOB# [id number] TATIANNA/BARBARA YBARRA
--- NOTE | 2019-02-16 07:56 | Discharge Summary ---
Providers - Providers Date of Admission: 02/15/19 12:54 Date of discharge: 02/16/19 Attending physician: MINAL HONEYCUTT 02/15/19 21:52 Consult to Physician [CONS] Routine Comment: Consulting Provider: ARIK MOBLEY Physician Instructions: Reason For Exam: V Tach Primary care physician: [facility], Hospitalization Condition: Stable Pertinent studies: CXR Hospital course: The pt is a 48 YO female with a past medical history significant for loop recorder in situ (placed 12/2017), paroxysmal VT, nonobstructive CAD, POTS, HTN, GERD, OA, migraines, anxiety presented with c/o palpitations and near syncope . At 7:52AM pt had an episode of VT which lasted 35 beats. Her episode was cap tured on her loop recorder. She spoke with her loading manager at [facility] and was advised to report to ED for further eval/management. On evaluation in the ER, pt is in NSR with no current complaints. She was placed on Toprol XL and Flecainide. Cardiology recommended to discharge the patient home and to follow up with her primary cardiology team at [facility] next Friday. Patient was discharged home in stable condition. Previous work up: LHC done 03/2018 showed nonobstructive CAD, EF 55-60%. Stress test done 10/11/2017 showed no evidence of ischemia or prior infarct, normal lv fxn, brief episode of SVT post-stress (self limited and resolved with vagal maneuvers). Echo done 10/10/2017 showed EF 50-55%, no significant valvular disease. Discharge diagnosis: (1) Ventricular tachycardia (paroxysmal) Current Visit: Yes Status: Chronic (2) History of loop recorder Current Visit: Yes Status: Chronic (3) S/P implantation of automatic cardioverter/defibrillator (AICD) Current Visit: Yes Status: Chronic Plan to address problem: explanted 11/2015 (4) Nonobstructive atherosclerosis of coronary artery Current Visit: Yes Status: Chronic (5) POTS (postural orthostatic tachycardia syndrome) Current Visit: Yes Status: Chronic (6) Hypertension Current Visit: Yes Status: Chronic Qualifiers: Hypertension type: essential hypertension Qualified Code(s): I10 - Essential (primary) hypertension (7) GERD (gastroesophageal reflux disease) Current Visit: Yes Status: Chronic (8) Anxiety Current Visit: Yes Status: Chronic (9) Obesity Current Visit: Yes Status: Chronic Disposition: DC-01 TO HOME OR SELFCARE Time spent for discharge: 34 minutes Core Measure Documentation - Palliative Care Palliative Care/ Comfort Measures: Not Applicable - Core Measures Any of the following diagnoses?: none Exam - Physical Exam Narrative exam: General: No Apparent Distress HEENT: Positive: PERRL, Normocephaly, Mucus Membranes Moist Neck: Positive: neck supple, trachea midline Cardiac: Positive: Reg Rate and Rhythm, S1/S2 Lungs: Positive: Decreased Breath Sounds Neuro: Positive: Grossly Intact Abdomen: Positive: Soft. Negative: Tender Skin: Negative: Rash, Wound Musculoskeletal: No Pain Extremities: Absent: edema - Constitutional Vitals: Temp Pulse Resp BP Pulse Ox 97.6 F 75 20 137/80 97 02/16/19 04:40 02/16/19 04:40 02/16/19 04:40 02/16/19 04:40 02/16/19 04:40 Plan Activity: advance as tolerated Weight Bearing Status: Weight Bear as Tolerated Diet: low fat, low salt Follow up with: RICH BARNES MD [Primary Care Provider] - 3-5 Days ARIK MOBLEY MD [Staff Physician] - 7 Days Forms: Work/School Release Form Prescriptions: Flecainide [Tambocor] 50 mg PO Q12HR #60 tablet
[2019-02-16] MEDS: PEPCID PO SCH (08:51)
[2019-02-16] MEDS: TOPROL XL PO SCH (08:51)
[2019-02-16] MEDS: TAMBOCOR PO SCH (08:52)
[2019-02-16] MEDS ORDERED: ASPIRIN PO SCH (10:00)
--- NOTE | 2019-02-16 12:27 | Progress Note ---
Assessment and Plan Pt in NSR with no acute events overnight. Currently stable cardiac status. Pt may discharge home from cardiology standpoint on current cardiac regimen, which includes Toprol XL and Flecainide. Pt is scheduled to follow up with her primary cardiology team at [place] next Friday. The patient has been seen in conjunction with Dr. Arguelles who agrees with the assessment and plan of care. - Patient Problems (1) Ventricular tachycardia (paroxysmal) Current Visit: Yes Status: Chronic (2) History of loop recorder Current Visit: Yes Status: Chronic (3) S/P implantation of automatic cardioverter/defibrillator (AICD) Current Visit: Yes Status: Chronic (4) Nonobstructive atherosclerosis of coronary artery Current Visit: Yes Status: Chronic (5) POTS (postural orthostatic tachycardia syndrome) Current Visit: Yes Status: Chronic (6) Hypertension Current Visit: Yes Status: Chronic Qualifiers: Hypertension type: essential hypertension Qualified Code(s): I10 - Essential (primary) hypertension (7) GERD (gastroesophageal reflux disease) Current Visit: Yes Status: Chronic (8) Anxiety Current Visit: Yes Status: Chronic (9) Obesity Current Visit: Yes Status: Chronic Subjective Date of service: 02/16/19 Principal diagnosis: NSVT Interval history: pt resting in bed, no current cardiac complaints, anxious. tele reviewed - pt in NSR with no acute events overnight. Objective Vital Signs Temp Pulse Resp BP BP Pulse Ox 02/16/19 08:38 97.7 F 73 18 133/82 99 02/16/19 04:40 97.6 F 75 20 137/80 97 02/16/19 03:40 71 02/16/19 00:47 97.5 F L 75 20 148/78 95 02/15/19 23:38 79 154/73 02/15/19 22:14 98.2 F 79 20 154/73 92 02/15/19 21:42 18 02/15/19 20:51 75 19 156/71 97 02/15/19 20:43 156/71 97 02/15/19 20:31 76 17 166/81 98 02/15/19 20:21 75 17 156/71 98 02/15/19 20:10 78 22 156/71 97 02/15/19 20:01 75 21 156/71 97 02/15/19 19:51 73 14 150/80 97 02/15/19 19:41 72 15 150/80 97 02/15/19 19:31 70 16 150/80 98 02/15/19 19:15 73 13 78/53 97 02/15/19 19:00 77 19 107/60 98 02/15/19 18:46 76 20 177/97 99 02/15/19 18:30 76 15 161/79 97 02/15/19 18:20 84 16 161/79 96 02/15/19 18:16 78 22 158/74 98 02/15/19 18:00 158/74 98 02/15/19 17:46 68 13 151/78 99 02/15/19 17:30 75 13 146/82 98 02/15/19 17:16 66 18 146/82 97 02/15/19 17:00 67 18 150/83 93 02/15/19 16:46 72 18 148/80 97 02/15/19 16:30 70 17 130/64 96 02/15/19 16:19 73 16 130/64 99 02/15/19 16:16 67 13 156/102 97 02/15/19 16:00 71 12 156/102 98 02/15/19 15:46 73 10 L 156/102 97 02/15/19 15:30 80 11 L 156/102 98 02/15/19 15:18 156/102 96 02/15/19 15:12 90 21 156/102 98 02/15/19 14:20 72 16 135/51 98 - Physical Examination General: No Apparent Distress HEENT: Positive: PERRL, Normocephaly, Mucus Membranes Moist Neck: Positive: neck supple, trachea midline Cardiac: Positive: Reg Rate and Rhythm, S1/S2 Lungs: Positive: Decreased Breath Sounds Neuro: Positive: Grossly Intact Abdomen: Positive: Soft. Negative: Tender Skin: Negative: Rash, Wound Musculoskeletal: No Pain Extremities: Absent: edema - Labs and Meds Cardiac Enzymes 02/16/19 Range/Units 04:21 AST 24 (5-40) units/L CBC 02/16/19 Range/Units 04:21 WBC 6.2 (4.5-11.0) K/mm3 RBC 4.60 (3.65-5.03) M/mm3 Hgb 13.3 (10.1-14.3) gm/dl Hct 39.0 (30.3-42.9) % Plt Count 192 (140-440) K/mm3 Lymph # 1.8 (1.2-5.4) K/mm3 [place] # 0.4 (0.0-0.8) K/mm3 Eos # 0.1 (0.0-0.4) K/mm3 Baso # 0.0 (0.0-0.1) K/mm3 Comprehensive Metabolic Panel 02/16/19 Range/Units 04:21 Sodium 141 (137-145) mmol/L Potassium 4.1 (3.6-5.0) mmol/L Chloride 104.0 (98-107) mmol/L Carbon Dioxide 26 (22-30) mmol/L BUN 12 (7-17) mg/dL Creatinine 0.6 L (0.7-1.2) mg/dL Glucose 92 (65-100) mg/dL Calcium 9.1 (8.4-10.2) mg/dL AST 24 (5-40) units/L ALT 19 (7-56) units/L Alkaline Phosphatase 56 (35-129) units/L Total Protein 6.7 (6.3-8.2) g/dL Albumin 3.8 L (3.9-5) g/dL - Imaging and Cardiology EKG: report reviewed, image reviewed Echo: report reviewed ( 10/10/2017 showed EF 50-55%, no significant valvular disease. ) Cardiac cath: report reviewed (03/2018 showed nonobstructive CAD, EF 55-60%. ) - EKG Sinus rhythms and dysrhythmias: sinus rhythm
[2019-02-16 14:50] VITALS: BP 151/83
== END 2019-02-16 15:25 | disposition home or self-care (01) ==
LOC: ED 09:28 → 4A 12:54
PROVIDERS: ADMIT Internal Medicine; ATTEND Internal Medicine
DX: I47.2 Ventricular tachycardia (principal); I10 Essential (primary) hypertension; F41.1 Generalized anxiety disorder; K21.9 Gastro-esophageal reflux disease without esophagitis; M19.90 Unspecified osteoarthritis, unspecified site; N20.0 Calculus of kidney; G43.909 Migraine, unspecified, not intractable, without status migrainosus; I25.10 Atherosclerotic heart disease of native coronary artery without angina pectoris; F32.9 Major depressive disorder, single episode, unspecified; F43.10 Post-traumatic stress disorder, unspecified; I49.5 Sick sinus syndrome; E66.9 Obesity, unspecified; R55 Syncope and collapse; Z90.49 Acquired absence of other specified parts of digestive tract; Z90.710 Acquired absence of both cervix and uterus; Z95.810 Presence of automatic (implantable) cardiac defibrillator
CPT/HCPCS: 36415; 71045; 80053; 83036; 83735; 84443; 84484; 85025; 85379; 93005; 93010; 96361; 96372; 99284; G0378; J1650; J7030

== ENCOUNTER 2019-02-22 06:37 | Emergency (ER) | payer BC ==
[2019-02-22] MEDS ORDERED: ASPIRIN PO ONE (07:00)
[2019-02-22 08:01] LABS: Basophils # (Auto) 0.1 K/mm3 (0.0-0.1); Eosinophils # (Auto) 0.1 K/mm3 (0.0-0.4); Eosinophils % (Auto) 0.7 % (0.0-4.3); Hematocrit 39.9 % (30.3-42.9); Hemoglobin 13.9 gm/dl (10.1-14.3); Lymphocytes # (Auto) 1.8 K/mm3 (1.2-5.4); Lymphocytes % (Auto) 25.6 % (13.4-35.0); Mean Corpuscular HGB Conc 35 % (30-34); Mean Corpuscular Volume 84 fl (79-97); Monocytes # (Auto) 0.4 K/mm3 (0.0-0.8); Monocytes % (Auto) 5.5 % (0.0-7.3); Platelet Count 209 K/mm3 (140-440); Red Blood Count 4.74 M/mm3 (3.65-5.03); Red Cell Distribution Width 13.5 % (13.2-15.2)
[2019-02-22 08:19] LABS: BUN/Creatinine Ratio 21; Blood Urea Nitrogen 15 mg/dL (7-17); Hemolysis Index 86
--- NOTE | 2019-02-22 08:58 | XRay Report ---
PROCEDURE: XR CHEST 1V AP TECHNIQUE: Chest radiograph single view. HISTORY: Chest Pain COMPARISONS: 11/24/2017 . FINDINGS: No mediastinal shift. Cardiac silhouette is not enlarged. Cardiac recording device. No pneumothorax, effusion, or focal pulmonary opacity identified. No acute skeletal findings. IMPRESSION: No acute pulmonary finding identified. This document is electronically signed by Eduardo Freeman MD., February 22 2019 08:56:31 AM ET
--- NOTE | 2019-02-22 09:21 | Vascular Lab Report ---
PROCEDURE: VL VENOUS DUPLEX LE RT TECHNIQUE: Duplex Doppler sonography of the right lower extremity. Vaz scale imaging with and witho ut compression, spectral waveform analysis with and without augmentation, and color flow Doppler were employed. HISTORY: Pain to back of calf. COMPARISONS: None FINDINGS: Deep Venous Thrombus: None Superficial Venous Thrombus: None Venous valvular incompetence: None Soft tissue abnormality: Mildly complex 1.6 x 1.1 cm fluid collection in the popliteal fossa with lo w-level internal echoes. IMPRESSION: No evidence of deep venous thrombosis. Mildly complex 1.6 x 1.1 cm fluid collection in the popliteal fossa, that may represent a complex Latosha er's cyst or hematoma. This document is electronically signed by Tess Escobar MD., February 22 2019 09:19:06 AM ET
--- NOTE | 2019-02-22 10:38 | Emergency Department Report ---
HPI - General Chief Complaint: Extremity Injury, Lower Time Seen by Provider: 02/22/19 09:36 - HPI HPI: 48-year-old female presents to the emergency department with a complaint of some pain to the right lower extremity from the hip down to the a nkle. The pain is worst behind the right knee and is a burning sensation. The patient was recently admitted and discharged from this hospital secondary to some issues with palpitations and a tachyarrhythmia. She says that since discharge she has been mostly lying around her house, resting, and with her symptoms she has concern whether she could've developed a blood clot. She denies any chest pain, shortness of breath, fever, skin color change, swelling/edema. She has a past medical history of arthritis, GERD, hypertension, coronary artery disease and tachyarrhythmias. ED Past Medical Hx - Past Medical History Previous Medical History?: Yes Hx Hypertension: Yes Hx Congestive Heart Failure: No Hx Diabetes: No Hx GERD: Yes Hx Arthritis: Yes Hx Headaches / Migraines: No Hx Kidney Stones: Yes Hx Asthma: No Hx COPD: No Hx HIV: No Additional medical history: CAD (3 BLOCKAGES, NO STENTS). SVT - Surgical History Past Surgical History?: Yes Hx Pacemaker: Yes (Defribrillator removed) Hx Internal Defibrillator: Yes (had defibrillator removed 2014) Hx Cholecystectomy: Yes Additional Surgical History: hysterectomy 2013 - Social History Smoking Status: Never Smoker Substance Use Type: None - Medications Home Medications: Home Medications Medication Instructions Recorded Confirmed Last Taken Type ALPRAZolam [Xanax TAB] 0.25 mg PO TID PRN #25 tablet 03/19/18 02/15/19 Unknown Rx Aspirin 325 mg PO QDAY #30 tablet 03/19/18 02/15/19 11/10/18 Rx Metoprolol Succinate [Toprol Xl] 50 mg PO BID 11/10/18 02/15/19 11/10/18 History Flecainide [Tambocor] 50 mg PO Q12HR #60 tablet 02/16/19 Unknown Rx ED Review of Systems ROS: Stated complaint: LEG PAIN ,SOB Other details as noted in HPI Comment: All other systems reviewed and negative Constitutional: denies: chills, fever Eyes: denies: eye pain, vision change ENT: denies: ear pain, throat pain Respiratory: denies: cough, shortness of breath Cardiovascular: denies: chest pain, palpitations Gastrointestinal: denies: abdominal pain, vomiting Genitourinary: denies: dysuria, discharge Musculoskeletal: arthralgia, myalgia Skin: denies: rash, lesions Neurological: denies: headache, weakness Physical Exam - Physical Exam Vital Signs: Vital Signs 02/22/19 06:38 Temperature 98.0 F Pulse Rate 81 Respiratory 18 Rate Blood Pressure 163/102 O2 Sat by Pulse 96 Oximetry Physical Exam: GENERAL: The patient is well-developed well-nourished. HENT: Normocephalic. Atraumatic. Patient has moist mucous membranes. EYES: Extraocular motions are intact. NECK: Supple. Trachea is midline. CHEST/LUNGS: Clear to auscultation. There is no respiratory distress noted. HEART/CARDIOVASCULAR: Regular. There is no tachycardia. There is no murmur. ABDOMEN: Abdomen is soft, nontender. Patient has normal bowel sounds. There is no abdominal distention. SKIN: Skin is warm and dry. NEURO: The patient is awake, alert, and oriented. The patient is cooperative. The patient has no focal neurologic deficits. The patient has normal speech. MUSCULOSKELETAL: There is some tenderness to palpation along the right calf and posterior knee but no obvious deformity. There is no limitation range of mo tion. There is no evidence of acute injury. ED Course Vital Signs 02/22/19 06:38 Temperature 98.0 F Pulse Rate 81 Respiratory 18 Rate Blood Pressure 163/102 O2 Sat by Pulse 96 Oximetry ED Medical Decision Making - Lab Data Result diagrams: 02/22/19 07:29 02/22/19 07:29 - Radiology Data Radiology results: report reviewed, image reviewed interpreted by me: Chest x-ray does not show any acute process. There are no pleural effusions, obvious pneumonia and there is no pneumothorax. PROCEDURE: VL VENOUS DUPLEX LE RT TECHNIQUE: Duplex Doppler sonography of the right lower extremity. Vaz scale imaging with and without compression, spectral waveform analysis with and without augmentation, and color flow Doppler were employed. HISTORY: Pain to back of calf. COMPARISONS: None FINDINGS: Deep Venous Thrombus: None Superficial Venous Thrombus: None Venous valvular incompetence: None Soft tissue abnormality: Mildly complex 1.6 x 1.1 cm fluid collection in the popliteal fossa with low-level internal echoes. IMPRESSION: No evidence of deep venous thrombosis. Mildly complex 1.6 x 1.1 cm fluid collection in the popliteal fossa, that may represent a complex Jordan's cyst or hematoma. This document is electronically signed by Tess Carty MD., February 22 2019 09:19:06 AM ET Transcribed By: SHAILA Dictated By: TESS CARTY MD Electronically Authenticated By: TESS CARTY MD Signed Date/Time: 02/22/19920 - Medical Decision Making Patient presents to the emergency department with some acute right leg pain that is worst behind the right knee and in the calf. No skin color change or swelling. The patient was concerned for a possible blood clot after she says she has been relatively immobile since her recent discharge from this hospital. An ultrasound was done that shows possible Jordan's cyst but otherwise no signs of any DVT. Patient's labs were unremarkable. Vital signs stable. She'll be discharged home to follow up with her primary care physician and orthopedist. She will return to the ER for any worsening of her symptoms or any acute distress. - Differential Diagnosis DVT, Jordan's cyst, hematoma, sciatica Critical Care Time: No Critical care attestation.: If time is entered above; I have spent that time in minutes in the direct care of this critically ill patient, excluding procedure time. ED Disposition Clinical Impression: Right leg pain Jordan's cyst of knee Qualifiers: Laterality: right Qualified Code(s): M71.21 - Synovial cyst of popliteal space [Jordan], right knee Disposition: DC-01 TO HOME OR SELFCARE Is pt being admited?: No Condition: Stable Instructions: Jordan's Cyst (ED), Arthralgia (ED) Additional Instructions: Please follow-up with your orthopedist in the next few days. Return to the emergency Department with any worsening of your symptoms or any acute distress. Referrals: JOYA RUIZ MD [Staff Physician] - 3-5 Days Time of Disposition: 10:39
[2019-02-22 10:45] VITALS: BP 147/82
== END 2019-02-22 10:45 | disposition home or self-care (01) ==
LOC: ED 06:37
DX: M71.21 Synovial cyst of popliteal space [Baker], right knee (principal); I10 Essential (primary) hypertension; K21.9 Gastro-esophageal reflux disease without esophagitis; M19.90 Unspecified osteoarthritis, unspecified site; Z87.442 Personal history of urinary calculi; Z86.79 Personal history of other diseases of the circulatory system; Z95.0 Presence of cardiac pacemaker; Z90.49 Acquired absence of other specified parts of digestive tract; Z90.710 Acquired absence of both cervix and uterus; Z79.82 Long term (current) use of aspirin; Z79.899 Other long term (current) drug therapy; Z88.1 Allergy status to other antibiotic agents
CPT/HCPCS: 36415; 71045; 80048; 84484; 85025; 93005; 93010

== ENCOUNTER 2019-06-21 03:29 | Emergency (ER) | payer BC ==
[2019-06-21 04:37] LABS: Bacteria,Urine 2+ /HPF (Negative); Bilirubin,Urine NEG (Negative); Blood,Urine LG (Negative); Color,Urine Yellow (Yellow); Mucus,Urine FEW /HPF; Protein,Urine <15 mg/dL mg/dL (Negative); Urobilinogen,Urine < 2.0 mg/dL (<2.0)
[2019-06-21 04:52] LABS: Basophils % (Auto) 0.7 % (0.0-1.8); Eosinophils # (Auto) 0.1 K/mm3 (0.0-0.4); Eosinophils % (Auto) 1.2 % (0.0-4.3); Hematocrit 37.2 % (30.3-42.9); Hemoglobin 12.7 gm/dl (10.1-14.3); Lymphocytes # (Auto) 1.4 K/mm3 (1.2-5.4); Lymphocytes % (Auto) 21.5 % (13.4-35.0); Mean Corpuscular HGB Conc 34 % (30-34); Mean Corpuscular Volume 84 fl (79-97); Monocytes # (Auto) 0.4 K/mm3 (0.0-0.8); Monocytes % (Auto) 5.5 % (0.0-7.3); Platelet Count 184 K/mm3 (140-440); Red Blood Count 4.42 M/mm3 (3.65-5.03); Red Cell Distribution Width 13.3 % (13.2-15.2)
[2019-06-21 05:08] LABS: Alanine Aminotransferase 18 units/L (7-56); Albumin 4.2 g/dL (3.9-5); BUN/Creatinine Ratio 23; Blood Urea Nitrogen 14 mg/dL (7-17); Calcium 8.9 mg/dL (8.4-10.2); Hemolysis Index 3
--- NOTE | 2019-06-21 09:19 | Emergency Department Report ---
ED Abdominal Pain HPI - General Chief Complaint: Abdominal Pain Stated Complaint: BACK PAIN Time Seen by Provider: 06/21/19 07:11 Source: patient Mode of arrival: Ambulatory Limitations: No Limitations - History of Present Illness Initial Comments: Patient is a 49-year-old female presents emergency room with complaints of left flank pain that began at 2 AM this morning. States that she felt the pain radiates to her left lower quadrant and to her groin. pt describes the pain as a sharp stabbing sensation. She had associated hematuria and nausea. States that she possibly passed a kidney stone in the restroom and the pain eased after that. she states that she took a tablet of Toradol that her had and it improved her pain as well. Denies any vomiting, diarrhea, fever, chills, any other symptoms. She last had a kidney stone approximately 20 years ago. past medical history of CAD, hypertension, heart ablation due to PVCs. - Related Data Home Medications Medication Instructions Recorded Confirmed Last Taken Metoprolol Succinate [Toprol Xl] 50 mg PO BID 11/10/18 02/15/19 11/10/18 Previous Rx's Medication Instructions Recorded Last Taken Type ALPRAZolam [Xanax TAB] 0.25 mg PO TID PRN #25 tablet 03/19/18 Unknown Rx Aspirin 325 mg PO QDAY #30 tablet 03/19/18 11/10/18 Rx Flecainide [Tambocor] 50 mg PO Q12HR #60 tablet 02/16/19 Unknown Rx Ketorolac [Toradol] 10 mg PO Q6H PRN #10 tablet 06/21/19 Unknown Rx Ondansetron [Zofran Odt] 4 mg PO Q8HR PRN #7 tab.rapdis 06/21/19 Unknown Rx Allergies Allergy/AdvReac Type Severity Reaction Status Date / Time doxycycline AdvReac ulcers Verified 03/16/18 19:20 esophagus tetracycline [Tetracycline] AdvReac ulcers Verified 03/16/18 19:20 esophagus ED Review of Systems ROS: Stated complaint: BACK PAIN Other details as noted in HPI Comment: All other systems reviewed and negative ED Past Medical Hx - Past Medical History Previous Medical History?: Yes Hx Hypertension: Yes Hx Congestive Heart Failure: No Hx Diabetes: No Hx GERD: Yes Hx Arthritis: Yes Hx Headaches / Migraines: No Hx Kidney Stones: Yes Hx Asthma: No Hx COPD: No Hx HIV: No Additional medical history: CAD (3 BLOCKAGES, NO STENTS). SVT - Surgical History Past Surgical History?: Yes Hx Pacemaker: Yes (Defribrillator removed) Hx Internal Defibrillator: Yes (had defibrillator removed 2014) Hx Cholecystectomy: Yes Additional Surgical History: hysterectomy 2013. cardiac ablation - Social History Smoking Status: Never Smoker Substance Use Type: None - Medications Home Medications: Home Medications Medication Instructions Recorded Confirmed Last Taken Type ALPRAZolam [Xanax TAB] 0.25 mg PO TID PRN #25 tablet 03/19/18 02/15/19 Unknown Rx Aspirin 325 mg PO QDAY #30 tablet 03/19/18 02/15/19 11/10/18 Rx Metoprolol Succinate [Toprol Xl] 50 mg PO BID 11/10/18 02/15/19 11/10/18 History Flecainide [Tambocor] 50 mg PO Q12HR #60 tablet 02/16/19 Unknown Rx Ketorolac [Toradol] 10 mg PO Q6H PRN #10 tablet 06/21/19 Unknown Rx Ondansetron [Zofran Odt] 4 mg PO Q8HR PRN #7 tab.rapdis 06/21/19 Unknown Rx ED Physical Exam - General Limitations: No Limitations General appearance: alert, in no apparent distress - Head Head exam: Present: atraumatic, normocephalic - Eye Eye exam: Present: normal appearance - ENT ENT exam: Present: mucous membranes moist - Respiratory Respiratory exam: Present: normal lung sounds bilaterally. Absent: respiratory distress, wheezes, rales, rhonchi, stridor, chest wall tenderness, accessory muscle use, decreased breath sounds, prolonged expiratory - Cardiovascular Cardiovascular Exam: Present: regular rate, normal rhythm, normal heart sounds. Absent: systolic murmur, diastolic murmur, rubs, gallop - GI/Abdominal GI/Abdominal exam: Present: soft, normal bowel sounds. Absent: distended, tenderness, guarding, rebound, rigid - Back Exam Back exam: Present: CVA tenderness (L) (mild) - Neurological Exam Neurological exam: Present: alert, oriented X3 - Psychiatric Psychiatric exam: Present: normal affect, normal mood - Skin Skin exam: Present: warm, dry, intact ED Course Vital Signs 06/21/19 06/21/19 03:30 10:16 Temperature 98.1 F Pulse Rate 75 72 Respiratory 18 18 Rate Blood Pressure 150/81 Blood Pressure 147/84 [Right] O2 Sat by Pulse 99 99 Oximetry ED Medical Decision Making - Lab Data Result diagrams: 06/21/19 04:19 06/21/19 04:19 Lab Results 06/21/19 06/21/19 06/21/19 Range/Units 04:12 04:19 04:19 WBC 6.4 (4.5-11.0) K/mm3 RBC 4.42 (3.65-5.03) M/mm3 Hgb 12.7 (10.1-14.3) gm/dl Hct 37.2 (30.3-42.9) % MCV 84 (79-97) fl MCH 29 (28-32) pg MCHC 34 (30-34) % RDW 13.3 (13.2-15.2) % Plt Count 184 (140-440) K/mm3 Lymph % (Auto) 21.5 (13.4-35.0) % [place] % (Auto) 5.5 (0.0-7.3) % Eos % (Auto) 1.2 (0.0-4.3) % Baso % (Auto) 0.7 (0.0-1.8) % Lymph # 1.4 (1.2-5.4) K/mm3 [place] # 0.4 (0.0-0.8) K/mm3 Eos # 0.1 (0.0-0.4) K/mm3 Baso # 0.0 (0.0-0.1) K/mm3 Seg Neutrophils % 71.1 H (40.0-70.0) % Seg Neutrophils # 4.6 (1.8-7.7) K/mm3 Sodium 142 (137-145) mmol/L Potassium 4.2 (3.6-5.0) mmol/L Chloride 102.7 (98-107) mmol/L Carbon Dioxide 28 (22-30) mmol/L Anion Gap 16 mmol/L BUN 14 (7-17) mg/dL Creatinine 0.6 L (0.7-1.2) mg/dL Estimated GFR > 60 ml/min BUN/Creatinine Ratio 23 % Glucose 117 H (65-100) mg/dL Calcium 8.9 (8.4-10.2) mg/dL Total Bilirubin 0.40 (0.1-1.2) mg/dL AST 17 (5-40) units/L ALT 18 (7-56) units/L Alkaline Phosphatase 52 (35-129) units/L Total Protein 6.8 (6.3-8.2) g/dL Albumin 4.2 (3.9-5) g/dL Albumin/Globulin Ratio 1.6 % Urine Color Yellow (Yellow) Urine Turbidity Slightly-cloudy (Clear) Urine pH 5.0 (5.0-7.0) Ur Specific [place] 1.016 (1.003-1.030) Urine Protein <15 mg/dl (Negative) mg/dL Urine Glucose (UA) Neg (Negative) mg/dL Urine Ketones Neg (Negative) mg/dL Urine Blood Lg (Negative) Urine Nitrite Neg (Negative) Urine Bilirubin Neg (Negative) Urine Urobilinogen < 2.0 (<2.0) mg/dL Ur Leukocyte Esterase Neg (Negative) Urine WBC (Auto) 4.0 (0.0-6.0) /HPF Urine RBC (Auto) 55.0 (0.0-6.0) /HPF U Epithel Cells (Auto) 4.0 (0-13.0) /HPF Urine Bacteria (Auto) 2+ (Negative) /HPF Urine Mucus Few /HPF - Radiology Data Radiology results: report reviewed CT ABDOMEN AND PELVIS WITHOUT CONTRAST HISTORY: left flank pain, hematuria COMPARISON: 12/23/2017 TECHNIQUE: Axial CT images were obtained through the abdomen and pelvis without IV contrast. Sagittal and coronal reformatted images. All CT scans at this location are performed using CT dose reduction for ALARA by means of automated exposure control. FINDINGS: CT ABDOMEN: Lung Bases: Clear. Trace right pleural effusion. Liver: No significant abnormality. Biliary: Cholecystectomy. No biliary dilatation. Spleen: No significant abnormality. Unenlarged. Pancreas: No significant abnormality. Adrenals: No significant abnormality. Kidneys: The renal pyramids appear slightly hyperdense which could represent nephrocalcinosis. No focal renal or ureteral stone is identified. No hydronephrosis. A 2.3 cm simple cyst at the superior pole of the left kidney has increased in size slightly. Lymphatics: No lymphadenopathy. Vasculature: Minimal aortic calcifications. No aneurysm. Bowel/Peritoneum: No evidence for bowel obstruction or focal inflammation. The appendix is normal. Surgical suture line along the greater curvature of the stomach may represent gastric sleeve surgical changes, correlate with history. No free fluid, free air or obvious mass. CT PELVIS: : Hysterectomy changes are suspected. The ovaries are visualized. A 2.6 cm right ovarian cyst and a 1.6 cm left ovarian cysts are identified. Osseous Structures: 1 cm anterolisthesis of L5 with respect to the sacrum with advanced degenerative disc disease is noted. Chronic bilateral pars defects are suspected. Moderate to severe bilateral neural foraminal narrowing is noted at L5-S1. The remaining vertebra are normal in alignment. Mild diffuse degenerative changes. Additional Findings: None IMPRESSION: Mild nephrocalcinosis is suspected bilaterally. No focal renal or ureteral stones are identified. Left renal cyst. Bilateral ovarian cysts as described. Surgical changes as described. Grade 2 anterolisthesis of L5 with respect to the sacrum. See above. Signer Name: Amadou Rodriguez Jr, MD Signed: 06/21/2019 9:23 AM Workstation Name: [id number] Transcribed By: TTR Dictated By: AMADOU RODRIGUEZ JR, MD Electronically Authenticated By: AMADOU RODRIGUEZ JR, MD Signed Date/Time: 06/21/19922 DD/ 5 TD/TT: - Medical Decision Making Patient is a 49-year-old female presents emergency room with complaints of left flank pain that began at 2 AM this morning. States that she felt the pain radiates to her left lower quadrant and to her groin. pt describes the pain as a sharp stabbing sensation. She had associated hematuria and nausea. States that she possibly passed a kidney stone in the restroom and the pain eased after that. she states that she took a tablet of Toradol that her had and it improved her pain as well. Denies any vomiting, diarrhea, fever, chills, any other symptoms. She last had a kidney stone approximately 20 years ago. past medical history of CAD, hypertension, heart ablation due to PVCs. Vitals are stable. She is afebrile no tachycardia. On exam mild left CVA tenderness. Labs are stable. UA shows red blood cells otherwise normal. CT abdomen pelvis without contrast performed and shows Mild nephrocalcinosis is suspected bilatera lly. No focal renal or ureteral stones are identified. Left renal cyst. Bilateral ovarian cysts as described. Surgical changes as described. Grade 2 anterolisthesis of L5 with respect to the sacrum. See above. Discussed CT findings with patient. Offered patient pain medication while in the ED and she declined it states that she is feeling much better. She was given prescription for Toradol and Zofran to use as needed. advised pt to please take medication as prescribed as needed. increase your water intake. follow up with a primary care doctor and urologist the next 3-5 days. return to the emergency room for any new or worsening symptoms. - Differential Diagnosis nephrolithiasis, hydronephrosis, pyelonephritis, UTI Critical care attestation.: If time is entered above; I have spent that time in minutes in the direct care of this critically ill patient, excluding procedure time. ED Disposition Clinical Impression: Right flank pain, Renal cyst, left Ovarian cyst Qualifiers: Laterality: bilateral Qualified Code(s): N83.201 - Unspecified ovarian cyst, right side DDD (degenerative disc disease) Qualifiers: Spinal region: lumbosacral Qualified Code(s): M51.37 - Other intervertebral disc degeneration, lumbosacral region Disposition: TO HOME OR SELFCARE Is pt being admited?: No Does the pt Need Aspirin: No Condition: Stable Instructions: Abdominal Pain (ED) Additional Instructions: Please take medication as prescribed as needed. increase your water intake. follow up with a primary care doctor and urologist the next 3-5 days. return to the emergency room for any new or worsening symptoms. Prescriptions: Ketorolac [Toradol] 10 mg PO Q6H PRN #10 tablet PRN Reason: Pain Ondansetron [Zofran Odt] 4 mg PO Q8HR PRN #7 tab.rapdis PRN Reason: Nausea And Vomiting Referrals: PRIMARY CARE, [Primary Care Provider] - 3-5 Days KIAN VICTOR MD [Staff Physician] - 3-5 Days Time of Disposition: 09:48 Print Language: SAMOAN
--- NOTE | 2019-06-21 09:27 | Cat Scan Report ---
CT ABDOMEN AND PELVIS WITHOUT CONTRAST HISTORY: left flank pain, hematuria COMPARISON: 12/23/2017 TECHNIQUE: Axial CT images were obtained through the abdomen and pelvis without IV contrast. Sagittal and coronal reformatted images. All CT scans at this location are performed using CT dose reduction for ALARA by means of automated exposure control. FINDINGS: CT ABDOMEN: Lung Bases: Clear. Trace right pleural effusion. Liver: No significant abnormality. Biliary: Cholecystectomy. No biliary dilatation. Spleen: No significant abnormality. Unenlarged. Pancreas: No significant abnormality. Adrenals: No significant abnormality. Kidneys: The renal pyramids appear slightly hyperdense which could represent nephrocalcinosis. No foc al renal or ureteral stone is identified. No hydronephrosis. A 2.3 cm simple cyst at the superior denise e of the left kidney has increased in size slightly. Lymphatics: No lymphadenopathy. Vasculature: Minimal aortic calcifications. No aneurysm. Bowel/Peritoneum: No evidence for bowel obstruction or focal inflammation. The appendix is normal. Craft rgical suture line along the greater curvature of the stomach may represent gastric sleeve surgical c hanges, correlate with history. No free fluid, free air or obvious mass. CT PELVIS: : Hysterectomy changes are suspected. The ovaries are visualized. A 2.6 cm right ovarian cyst and a 1.6 cm left ovarian cysts are identified. Osseous Structures: 1 cm anterolisthesis of L5 with respect to the sacrum with advanced degenerative disc disease is noted. Chronic bilateral pars defects are suspected. Moderate to severe bilateral margarita ral foraminal narrowing is noted at L5-S1. The remaining vertebra are normal in alignment. Mild diffu se degenerative changes. Additional Findings: None IMPRESSION: Mild nephrocalcinosis is suspected bilaterally. No focal renal or ureteral stones are identified. Lef t renal cyst. Bilateral ovarian cysts as described. Surgical changes as described. Grade 2 anterolisthesis of L5 with respect to the sacrum. See above. Signer Name: Amadou Costa Jr, MD Signed: 06/21/2019 9:23 AM Workstation Name: [id number]
[2019-06-21 10:18] VITALS: BP 147/84
== END 2019-06-21 10:16 | disposition home or self-care (01) ==
LOC: ED 03:29
DX: N83.201 Unspecified ovarian cyst, right side (principal); M51.37 Other intervertebral disc degeneration, lumbosacral region; N28.1 Cyst of kidney, acquired; I10 Essential (primary) hypertension; K21.9 Gastro-esophageal reflux disease without esophagitis; M19.90 Unspecified osteoarthritis, unspecified site; I25.10 Atherosclerotic heart disease of native coronary artery without angina pectoris; Z87.442 Personal history of urinary calculi; Z90.710 Acquired absence of both cervix and uterus; Z95.810 Presence of automatic (implantable) cardiac defibrillator; Z79.899 Other long term (current) drug therapy; Z88.8 Allergy status to other drugs, medicaments and biological substances
CPT/HCPCS: 36415; 74176; 80053; 81001; 85025

== ENCOUNTER 2019-07-22 13:17 | Outpatient (CLI) | payer BC ==
--- NOTE | 2019-07-26 11:50 | Mammography Report ---
DIGITAL SCREENING MAMMOGRAM WITH CAD, 07/22/2019 INDICATION: Routine screening mammography. TECHNIQUE: Digital bilateral 2D mammography was obtained in the craniocaudal and mediolateral obliq ue projections. This examination was interpreted with the benefit of Computer-Aided Detection analysi s. COMPARISON: 02/11/2018 FINDINGS: Breast Density: The breasts are heterogeneously dense, which may obscure small masses. There is no evidence of dominant mass, suspicious calcifications or architectural distortion in eithe r breast. A loop recorder is identified at the inner left breast. IMPRESSION: No mammographic evidence of malignancy. Follow up recommendation: Routine yearly BI-RADS Category 1: Negative. A "normal" or negative report should not discourage follow up or biopsy of a clinically significant f inding. A written summary of these findings will be mailed to the patient. The patient will be entered into a mammography reporting system which will generate a reminder letter for the patient's next appointmen t at the appropriate interval. The [employer] recommends yearly mammograms starting at age 40 and continuing as l dhruv as a woman is in good health. Breast MRI is recommended for women with an approximate 20-25% or greater lifetime risk of breast cancer, including women with a strong family history of breast or ova cecilio cancer or who have been treated for Hodgkin's disease. Signer Name: Todd Gomez MD Signed: 07/26/2019 11:45 AM Workstation Name: [id number]
== END 2019-07-22 13:18 | disposition home or self-care (01) ==
LOC: SPVWC 13:17
PROVIDERS: ATTEND Obstetrics & Gynecology
DX: Z12.31 Encounter for screening mammogram for malignant neoplasm of breast (principal)
CPT/HCPCS: 77067